=== PATIENT | male | born 1950 | race Caucasian/White ===

== ENCOUNTER 2017-03-11 16:48 | Observation (INO) ==
[2017-03-11 17:19] LABS: Bilirubin,Urine Negative (Negative); Blood,Urine Large (Negative); Clarity,Urine Clear (Clear); Color,Urine Yellow (Yellow); Glucose,Urine (UA) Normal (Normal); Ketones,Urine Negative (Negative); Leukocyte Esterase,Urine Small (Negative); Nitrite,Urine Negative (Negative); Protein,Urine Negative (Neg-Trace); Specific Gravity,Urine 1.006 (1.010-1.025); Urobilinogen,Urine Normal (Normal)
[2017-03-11 17:21] LABS: Bacteria,Urine None Seen per hpf (None-Few); Hyaline Casts,Urine None Seen per lpf (None-Few); RBC,Urine 50-100 per hpf (0-3); Squamous Epithelial Cell,Urine Many per lpf (None-Few)
[2017-03-11] MEDS: 0.9 % Sodium Chloride 1,000 ML IVC SCH ×2 (17:38→18:28)
[2017-03-11] MEDS ORDERED: cefTRIAXone 1,000 MG in Water for inj. (sterile) 10 ML IVP ONE (18:15)
[2017-03-11 18:19] LABS: Basophils # 0.1 K/mcL (0.0-0.2); Basophils % 0.6 %; Eosinophils # 0.1 K/mcL (0.0-0.6); Eosinophils % 0.8 %; Hematocrit 45.3 % (37.5-50.1); Hemoglobin 15.1 g/dL (12.9-16.9); Immature Granulocytes % 0.8 % (0-4); Lymphocytes % 69.1 %; Mean Corpuscular HGB Conc 33.3 g/dL (31.6-35.5); Mean Corpuscular Hemoglobin 30.3 pg (28.0-33.3); Mean Corpuscular Volume 90.8 fL (83.0-100.0); Mean Platelet Volume 10.9 fL (9.4-12.4); Monocytes # 0.6 K/mcL (0.0-1.3); Neutrophils # 3.9 K/mcL (1.6-8.9); Platelet Count 144 K/mcL (140-400); Red Blood Count 4.99 M/mcL (4.19-5.50); Segmented Neutrophils % 24.7 %
[2017-03-11 18:23] LABS: INR 1.1; Prothrombin Time 11.5 Seconds (9.4-12.1)
[2017-03-11 18:39] LABS: Alanine Aminotransferase 75 Units/L (7-52); Albumin 3.6 g/dL (3.5-5.7); Albumin/Globulin Ratio 1.6 (1.1-2.2); Alkaline Phosphatase 87 Units/L (34-104); Aspartate Amino Transferase 52 Units/L (13-39); BUN/Creatinine Ratio 19 (6-26); Bilirubin,Direct 0.1 mg/dL (0.0-0.2); Bilirubin,Indirect 0.8 mg/dL (0.0-1.2); Bilirubin,Total 0.9 mg/dL (0.3-1.0); Blood Urea Nitrogen 19 mg/dL (8-23); Calcium 8.8 mg/dL (8.6-10.3); Carbon Dioxide 24 mEq/L (23-29); Chloride 106 mEq/L (98-107); Globulin 2.3 g/dL (2.4-3.5); Glucose 90 mg/dL (70-105); Lipase 20 Units/L (11-82); Osmolality,Calculated 284 (280-300); Potassium 4.8 mEq/L (3.5-5.1); Sodium 136 mEq/L (136-145); Total Protein 5.9 g/dL (6.4-8.9); eGFR For African Americans > 60 (> 60); eGFR For Non-African Americans > 60 (> 60)
--- NOTE | 2017-03-11 18:42 | Emergency Department Note ---
Disposition Clinical Impression: UTI (urinary tract infection) Qualifiers: Urinary tract infection type: site unspecified Hematuria presence: with hematuria Qualified Code(s): N39.0 - Urinary tract infection, site not specified ; R31.9 - Hematuria, unspecified; R31.9 - Hematuria, unspecified Sepsis Qualifiers: Sepsis type: sepsis due to unspecified organism Qualified Code(s): A41.9 - Sepsis, unspecified organism Disposition: Admitted As Inpatient Condition: Good [facility]: [facility]Primary Care Provider[facility] - Evgeny Wolff [Family Provider] - Forms: ED Satisfaction Letter General Adult HPI - General Chief complaint: ED Urogenital-Male Stated complaint: poss UTI Time Seen by Provider: 03/11/17 16:50 Source: EMS Limitations: no limitations Nursing Notes Reviewed: Yes Vital Signs Reviewed: Yes - History of Present Illness HPI Narrative: Patient transferred from the [place] for concern for cystitis versus pallor nephritis. Patient had a cystoscopy and urethral dilation approximately 1 week ago by urology at [place]. Patient had a Brandt placed and was to follow-up on Tuesday for a voiding trial. Patient noticed today that he had a change in the color of his urine as well as suprapubic abdominal pain with radiation to the left flank. Went to the urgent care where they did some initial blood work and evaluation showing a elevated WBC at 17. Patient has concern for urinary tract infection. Mild increase in creatinine. Patient arrives with initial blood pressure less than 100. Concern for overall sepsis. Sepsis that ordered. Patient does not appear to be in any distress. Patient is very pleasant and overly conversational. Pain Scale: 2 - Related Data Home Medications Medication Instructions Recorded Confirmed Gabapentin [Neurontin] 300 mg PO TID 02/09/17 03/11/17 Levothyroxine [Synthroid] 50 mcg PO 0630 02/09/17 03/11/17 Multivit-Min/FA/Vit K/Lycopene [Hm 1 tab PO DAILY 02/09/17 03/11/17 Mens 50+ Advanced One Daily] Cetirizine HCl [All Day Allergy] 10 mg PO DAILY 03/04/17 03/11/17 Cholecalciferol (D-3) [Vitamin D] 3,000 unit PO DAILY 03/04/17 03/11/17 Cyclobenzaprine [Flexeril] 10 mg PO TID PRN 03/04/17 03/11/17 Lisinopril [Zestril] 5 mg PO DAILY 03/04/17 03/11/17 Meloxicam 15 mg PO DAILY 03/04/17 03/11/17 Atorvastatin [Lipitor] 40 mg PO HS 03/11/17 03/11/17 Calcium Carbonate/Vitamin D3 1 each PO DAILY 03/11/17 03/11/17 [Calcium 600-Vit D3 200 Tablet] Carboxymethylcellulose Sodium 1 drop BOTH EYES QID 03/11/17 03/11/17 [Refresh Liquigel] Doxycycline Monohydrate [Avidoxy] 100 mg PO BID 03/11/17 FLUoxetine HCl [PROzac] 20 mg PO DAILY 03/11/17 03/11/17 Glucosamine Sulfate Dipot Chlr 1,000 mg PO DAILY 03/11/17 03/11/17 [Glucosamine] GuaiFENesin/Dextromethorphan 10 ml PO Q4H PRN 03/11/17 03/11/17 [Tussin Dm Syrup] Metformin HCl [Glucophage] 1,000 mg PO BID 03/11/17 03/11/17 MetroNIDAZOLE [[place]] 1 appl TP BID 03/11/17 03/11/17 glipiZIDE [Glucotrol] 2.5 mg PO BIDWM 03/11/17 03/11/17 risperiDONE [Risperdal] 2 mg PO HS 03/11/17 03/11/17 Previous Rx's Medication Instructions Recorded HYDROcodone/Acet 5/325 mg [[place] 1 tab PO Q4H PRN #15 tab 03/04/17 5-325 mg] Allergies Allergy/AdvReac Type Severity Reaction Status Date / Time levofloxacin [From Levaquin] Allergy Rash Verified 03/11/17 16:49 Sulfa (Sulfonamide Allergy See Verified 03/11/17 16:49 Antibiotics) Comments sulfamethoxazole Allergy See Verified 03/11/17 16:49 [From Bactrim] Comments trimethoprim [From Bactrim] Allergy See Verified 03/11/17 16:49 Comments Review of Systems: CONSTITUTIONAL: No weight loss, fever, chills, weakness or fatigue. HEENT: Eyes: No visual changes. Ears, Nose, Throat: No hearing loss, difficulty talking or unable to swallow. SKIN: No rash or itching. CARDIOVASCULAR: No chest pain, chest pressure or chest discomfort. No palpitations or edema. RESPIRATORY: No shortness of breath, cough or sputum. GASTROINTESTINAL: abdominal pain. urine changes. GENITOURINARY: No burning on urination or hematuria. NEUROLOGICAL: No headache, dizziness, syncope, paralysis, ataxia, numbness or tingling in the extremities. No change in bowel or bladder control. MUSCULOSKELETAL: No muscle pain, back pain, joint pain or stiffness. Past Medical History - Past Medical History Medical history: Reports: diabetes, thyroid disease Psychiatric history: Reports: anxiety, depression, schizophrenia - Social History Smoking Status: Never smoker Smokeless Tobacco Status: No Alcohol use: Reports: none Drug use: Reports: none Physical Exam General: Well appearing, nontoxic, no acute distress Head: Normocephalic Atraumatic Eyes: PERRL, EOMI ENT: Airway patent, no stridor Neck: supple, no meningismus Chest: Lungs clear to auscultation bilateral Cardiac: Regular rhythm, no murmurs, rubs or gallops Abdomen: soft, nontender, nondistended; no guarding, rebound, or tenderness to percussion; mild left sided CVA tenderness. Brandt catheter inplace. Musculoskeletal: Calves symmetric, nontender, no palpable cord Skin: No rash, normal skin tone Neuro: Alert and Oriented to person, place, and time; No focal deficit, CN 2-12 symmetric and intact - General Limitations: no limitations General appearance: alert, in no apparent distress Course Course Narrative: The patient initially presented with no tachycardia but did have a systolic blood pressure that was 88. Initial sepsis order set ordered. Fluids been given. After reevaluation after fluids the patient has not had any other episodes of hypotension. Patient is stable at this time. - Consultations Consultation #1: Discussed with hospitalist, Dr. Cain. Patient accepted for admission. Request consult to urology and 100 mL's per hour of maintenance fluids. Consultation #2: Discussed with Dr. Gaxiola. No other recommendations at this time. Will consult while inpatient. Vital Signs Temperature 97.1 F L 03/11/17 16:50 Pulse Rate 84 03/11/17 16:50 Respiratory Rate 15 03/11/17 16:50 Blood Pressure 126/71 03/11/17 16:50 O2 Sat by Pulse Oximetry 97 01/19/18 16:50 Temperature 97.1 F L 03/11/17 16:50 Pulse Rate 84 03/11/17 20:25 Respiratory Rate 18 03/11/17 20:25 Blood Pressure 140/78 03/11/17 20:25 O2 Sat by Pulse Oximetry 97 03/11/17 20:25 Oxygen Delivery Oxygen Delivery Room Air Medical Decision Making - Lab Data Result diagrams: 03/11/17 18:04 03/11/17 18:04 Lab Results 03/11/17 03/11/17 03/11/17 Range/Units 17:12 18:04 18:04 WBC 15.7 H (4.3-11.1) K/mcL RBC 4.99 (4.19-5.50) M/mcL Hgb 15.1 (12.9-16.9) g/dL Hct 45.3 (37.5-50.1) % MCV 90.8 (83.0-100.0) fL MCH 30.3 (28.0-33.3) pg MCHC 33.3 (31.6-35.5) g/dL RDW 13.0 (11.5-14.5) % Plt Count 144 (140-400) K/mcL MPV 10.9 (9.4-12.4) fL Immature Gran % 0.8 (0-4) % Seg Neutrophils % 24.7 % Lymphocytes % 69.1 % Monocytes % 4.0 % Eosinophils % 0.8 % Basophils % 0.6 % Neutrophils # 3.9 (1.6-8.9) K/mcL Lymphocytes # 10.9 H (0.6-4.6) K/mcL Monocytes # 0.6 (0.0-1.3) K/mcL Eosinophils # 0.1 (0.0-0.6) K/mcL Basophils # 0.1 (0.0-0.2) K/mcL Reactive Lymphocytes Present A (Not Present) Smudge Cells Present A (Not Present) PT 11.5 (9.4-12.1) Seconds INR 1.1 Sodium (136-145) mEq/L Potassium (3.5-5.1) mEq/L Chloride (98-107) mEq/L Carbon Dioxide (23-29) mEq/L BUN (8-23) mg/dL Creatinine (0.70-1.30) mg/dL Est GFR ( Amer) (> 60) Est GFR (Non-Af Amer) (> 60) BUN/Creatinine Ratio (6-26) Glucose (70-105) mg/dL Calculated Osmolality (280-300) Lactic Acid (0.5-2.2) mmol/L Calcium (8.6-10.3) mg/dL Total Bilirubin (0.3-1.0) mg/dL Direct Bilirubin (0.0-0.2) mg/dL Indirect Bilirubin (0.0-1.2) mg/dL AST (13-39) Units/L ALT (7-52) Units/L Alkaline Phosphatase (34-104) Units/L Troponin I (< 0.04) ng/mL Serum Total Protein (6.4-8.9) g/dL Albumin (3.5-5.7) g/dL Globulin (2.4-3.5) g/dL Albumin/Globulin Ratio (1.1-2.2) Lipase (11-82) Units/L Urine Color Yellow (Yellow) Urine Clarity Clear (Clear) Urine pH 7.0 (5.0-8.0) pH Units Ur Specific [place] 1.006 L (1.010-1.025) Urine Protein Negative (Neg-Trace) mg/dL Urine Glucose (UA) Normal (Normal) mg/dL Urine Ketones Negative (Negative) mg/dL Urine Blood Large H (Negative) Urine Nitrite Negative (Negative) Urine Bilirubin Negative (Negative) Urine Urobilinogen Normal (Normal) mg/dL Ur Leukocyte Esterase Small H (Negative) Urine Microscopic RBC 50-100 H (0-3) per hpf Urine Microscopic WBC 5-15 H (0-3) per hpf Ur Squamous Epith Cells Many H (None-Few) per lpf Urine Bacteria None Seen (None-Few) per hpf Hyaline Casts None Seen (None-Few) per lpf Ur Culture Indicated? NO. (NO) 03/11/17 03/11/17 03/11/17 Range/Units 18:04 18:04 18:04 WBC (4.3-11.1) K/mcL RBC (4.19-5.50) M/mcL Hgb (12.9-16.9) g/dL Hct (37.5-50.1) % MCV (83.0-100.0) fL MCH (28.0-33.3) pg MCHC (31.6-35.5) g/dL RDW (11.5-14.5) % Plt Count (140-400) K/mcL MPV (9.4-12.4) fL Immature Gran % (0-4) % Seg Neutrophils % % Lymphocytes % % Monocytes % % Eosinophils % % Basophils % % Neutrophils # (1.6-8.9) K/mcL Lymphocytes # (0.6-4.6) K/mcL Monocytes # (0.0-1.3) K/mcL Eosinophils # (0.0-0.6) K/mcL Basophils # (0.0-0.2) K/mcL Reactive Lymphocytes (Not Present) Smudge Cells (Not Present) PT (9.4-12.1) Seconds INR Sodium 136 (136-145) mEq/L Potassium 4.8 (3.5-5.1) mEq/L Chloride 106 (98-107) mEq/L Carbon Dioxide 24 (23-29) mEq/L BUN 19 (8-23) mg/dL Creatinine 1.01 (0.70-1.30) mg/dL Est GFR ( Amer) > 60 (> 60) Est GFR (Non-Af Amer) > 60 (> 60) BUN/Creatinine Ratio 19 (6-26) Glucose 90 (70-105) mg/dL Calculated Osmolality 284 (280-300) Lactic Acid 1.9 (0.5-2.2) mmol/L Calcium 8.8 (8.6-10.3) mg/dL Total Bilirubin 0.9 (0.3-1.0) mg/dL Direct Bilirubin 0.1 (0.0-0.2) mg/dL Indirect Bilirubin 0.8 (0.0-1.2) mg/dL AST 52 H (13-39) Units/L ALT 75 H (7-52) Units/L Alkaline Phosphatase 87 (34-104) Units/L Troponin I < 0.03 (< 0.04) ng/mL Serum Total Protein 5.9 L (6.4-8.9) g/dL Albumin 3.6 (3.5-5.7) g/dL Globulin 2.3 L (2.4-3.5) g/dL Albumin/Globulin Ratio 1.6 (1.1-2.2) Lipase 20 (11-82) Units/L Urine Color (Yellow) Urine Clarity (Clear) Urine pH (5.0-8.0) pH Units Ur Specific [place] (1.010-1.025) Urine Protein (Neg-Trace) mg/dL Urine Glucose (UA) (Normal) mg/dL Urine Ketones (Negative) mg/dL Urine Blood (Negative) Urine Nitrite (Negative) Urine Bilirubin (Negative) Urine Urobilinogen (Normal) mg/dL Ur Leukocyte Esterase (Negative) Urine Microscopic RBC (0-3) per hpf Urine Microscopic WBC (0-3) per hpf Ur Squamous Epith Cells (None-Few) per lpf Urine Bacteria (None-Few) per hpf Hyaline Casts (None-Few) per lpf Ur Culture Indicated? (NO) Attestation Statement - Attestation Attestation: I examined this patient and my medical decision-making was reviewed with the Resident Physician. I agree with the documented findings, disposition and treatment plan as described except to the extent set forth below. Patient presents to the ED with a chief complaint of blood in his urine. He noticed it last night. Patient recently had a urologic procedure and a Brandt catheter placed. Transfer[place]. On examination he is awake and alert. Some mild suprapubic tenderness. He is not guarding. Plan. Septic workup. Elevated white blood cell count. He has some blood and white blood cells in his urine. We will start him on IV antibiotic and admitted to the hospitalist.
[2017-03-11 18:53] LABS: Lymphocytes # 10.9 K/mcL (0.6-4.6)
[2017-03-11 18:55] LABS: Reactive Lymphocytes Present (Not Present); Smudge Cells Present (Not Present)
[2017-03-11] MEDS ORDERED: 0.9 % Sodium Chloride 1,000 ML IVC SCH (20:30)
[2017-03-12] MEDS ORDERED: *HR* Dextrose 50 % in Water (Syg) 50 ML SYRINGE IVP PRN (00:45)
[2017-03-12] MEDS ORDERED: Dextrose Gel 15 GM/37.5 ML TUBE PO PRN ×2 (00:45)
[2017-03-12] MEDS ORDERED: D5% in Water 1,000 ML IVC PRN (00:45)
[2017-03-12] MEDS: 0.9 % Sodium Chloride 1,000 ML IVC SCH ×2 (03:27→14:35)
[2017-03-12] MEDS ORDERED: Acetaminophen 325 MG TABLET PO PRN (03:50)
[2017-03-12] MEDS ORDERED: Ondansetron 4 MG/2 ML VIAL IVP PRN (03:50)
[2017-03-12] MEDS ORDERED: Naloxone 0.4 MG/ML INJ IVP PRN (03:50)
[2017-03-12] MEDS ORDERED: *HR* HYDROcodone/Acet 5/325 mg TABLET PO PRN (03:53)
--- NOTE | 2017-03-12 04:11 | Internal Med History&Physical ---
Date of Encounter: 03/12/17 Time of Encounter: 00:20 Assessment and Plan (1) UTI (urinary tract infection) Current visit: Yes Status: Acute 1. Blood and urine cultures obtained in ER. 2. Continue IVF and IV antibiotics. 3. Consult urology given recent procedure and indwelling Brandt catheter. Qualifiers: Urinary tract infection type: site unspecified Hematuria presence: with hematuria Qualified Code(s): N39.0 - Urinary tract infection, site not specified; R31.9 - Hematuria, unspecified; R31.9 - Hematuria, unspecified (2) Type 2 diabetes mellitus Current visit: Yes Status: Chronic 1. Hold oral home meds. 2. Will monitor glucose and provide sliding scale insulin. Qualifiers: Diabetes mellitus complication status: without complication Diabetes mellitus penitentiary insulin use: without supervisor long goods use Qualified Code(s): E11.9 - Type 2 diabetes mellitus without complications (3) CLL (chronic lymphocytic leukemia) Current visit: No Status: Chronic 1. Follow CBC. 2. Patient follows with Oncology as outpatient. (4) DVT prophylaxis Current visit: Yes Status: Acute 1. Heparin SQ. Internal Medicine - H&P: HPI Chief complaint: dysuria; hematuria Admitted From: Emergency Dept Plans for Post Hospital Care: Home History of present illness: Mr. Baum is a 67 year old male who presents here today in transfer [place] the [place] for concerns of UTI and hematuria. Patient had a urethral dilatation roughly 1 week ago by urology for urethral stenosis. He has a Brandt catheter in place and is due to have that removed early next week with a voiding trial. However, since his procedure, he's developed some dysuria, frequency, and some slight hematuria. He's had some low-grade fevers. He denies any vomiting at present, but he's had some nausea. Work-up completed in the ER revealed findings concerning for UTI and he was admitted to hospitalist service with urology consultation. Upon my assessment of the patient, patient feels well, but he looks low dehydrated and has had some mild nausea. He denies any cough, congestion, shortness of breath, chest pain, or diarrhea. His appetite has been down, as has been his fluid intake as well. He has had some suprapubic pain, but he denies any upper abdominal pain or flank pain. Past Med Surg Social Fam HX - Past Medical History Attestation: Yes The following information was validated with the patient. Source: patient, old records reviewed Medical history: diabetes, malignancy (CLL), thyroid disease Psychiatric history: anxiety, depression, schizophrenia - Past Surgical History Surgical History: other (urologic surgery) - Social History Smoking Status: Never smoker Smokeless Tobacco Status: No Alcohol use: none Drug use: none Activity Level: Independent ambulation Recent Out of Country Travel Within the Last 8 Weeks: No - Family History Daughter History Unknown: Yes Adopted: No Father History Unknown: Yes Adopted: [place]: Joe Baum Family Member Ethnicity: Non- Living Status: Age at : 85 Hx Family Genitourinary Disorders: Yes (enlarged prostate) Internal Medicine - H&P: Meds Gabapentin [Neurontin] 300 mg PO TID 02/09/17 [History] Levothyroxine [Synthroid] 50 mcg PO 0630 02/09/17 [History] Multivit-Min/FA/Vit K/Lycopene [Hm Mens 50+ Advanced One Daily] 1 tab PO DAILY 02/09/17 [History] Cetirizine HCl [All Day Allergy] 10 mg PO DAILY 03/04/17 [History] Cholecalciferol (D-3) [Vitamin D] 3,000 unit PO DAILY 03/04/17 [History] Cyclobenzaprine [Flexeril] 10 mg PO TID PRN 03/04/17 [History] HYDROcodone/Acet 5/325 mg [[place] 5-325 mg] 1 tab PO Q4H PRN #15 tab 03/04/17 [Rx ] Lisinopril [Zestril] 5 mg PO DAILY 03/04/17 [History] Meloxicam 15 mg PO DAILY 03/04/17 [History] Atorvastatin [Lipitor] 40 mg PO HS 03/11/17 [History] Calcium Carbonate/Vitamin D3 [Calcium 600-Vit D3 200 Tablet] 1 each PO DAILY [History] Carboxymethylcellulose Sodium [Refresh Liquigel] 1 drop BOTH EYES QID 03/11/17 [ History] Doxycycline Monohydrate [Avidoxy] 100 mg PO BID 03/11/17 [History] FLUoxetine HCl [PROzac] 20 mg PO DAILY 03/11/17 [History] Glucosamine Sulfate Dipot Chlr [Glucosamine] 1,000 mg PO DAILY 03/11/17 [History ] GuaiFENesin/Dextromethorphan [Tussin Dm Syrup] 10 ml PO Q4H PRN 03/11/17 [ History] Metformin HCl [Glucophage] 1,000 mg PO BID 03/11/17 [History] MetroNIDAZOLE [Rosadan] 1 appl TP BID 03/11/17 [History] glipiZIDE [Glucotrol] 2.5 mg PO BIDWM 03/11/17 [History] risperiDONE [Risperdal] 2 mg PO HS 03/11/17 [History] 3 Allergy/AdvReac Type Severity Reaction Status Date / Time levofloxacin [From Levaquin] Allergy Rash Verified 03/11/17 16:49 Sulfa (Sulfonamide Allergy See Verified 03/11/17 16:49 Antibiotics) Comments sulfamethoxazole Allergy See Verified 03/11/17 16:49 [From Bactrim] Comments trimethoprim [From Bactrim] Allergy See Verified 03/11/17 16:49 Comments - Constitutional Constitutional: fever(s) (subjective), no chills, no night sweats - EENT Eyes: no blurry vision, no change in vision Ears: no ear pain, no tinnitus Nose, mouth and throat: no nasal congestion, no nasal discharge, no sore throat - Cardiovascular Cardiovascular ROS IM: no chest pain, no dyspnea, no dyspnea on exertion - Respiratory Respiratory: no cough, no wheezing, no chest congestion, no excessive phlegm production, no change in phlegm color - Gastrointestinal Gastrointestinal: abdominal pain (suprapubic), nausea, no diarrhea, no vomiting - Genitourinary Genitourinary ROS male: dysuria, hematuria, no flank pain - Musculoskeletal Musculoskeletal ROS IM: no muscle cramps, no muscle weakness - Integumentary Integumentary IM: no rash, no jaundice - Neurological Neurological ROS: no dizziness, no focal weakness, no frequent falls, no headache(s), no weakness - Psychiatric Psychiatric: no anxiety, no depression - Endocrine Endocrine IM: no polydipsia, no polyuria - Hematologic/Lymphatic Hematologic/Lymphatic: no easy bruising, no lymphadenopathy - Allergic/Immunologic Allergic/Immunologic: no wheezing, no GI upset with certain foods - Constitutional Vitals: Temp Pulse Resp BP Pulse Ox 98.3 F 81 17 116/71 93 03/12/17 02:50 03/12/17 02:50 03/12/17 02:50 03/12/17 02:50 03/12/17 02:50 General appearance: Present: cooperative, A&O X 3, pleasant, no acute distress - Head Head exam: Present: atraumatic, normal inspection - Eye Eye exam: Present: EOMI, PERRL. Absent: scleral icterus Pupils: Present: normal accommodation - ENT ENT exam: Present: mucous membranes dry, normal exam - Neck Neck exam general surgery: Present: full ROM, supple. Absent: tenderness - Respiratory Respiratory exam: Present: CTAB. Absent: chest wall tenderness, rales, rhonchi , wheezes - Cardiovascular Cardiovascular exam: Present: RRR, +S1, +S2. Absent: diastolic murmur, systolic murmur - GI/Abdominal GI/Abdominal exam: Present: normal bowel sounds, soft, tenderness (mild tenderness suprapubically). Absent: guarding, hepatomegaly, mass, rebound, splenomegaly - Extremities Exam Extremities exam: Present: warm, radial pulses palpable and symmetrical. Absent : calf tenderness, joint swelling - Back Exam Back exam: Absent: CVA tenderness (L), CVA tenderness (R) - Neurological Exam Neurological exam: Present: alert, CN II-XII intact, oriented X3, no focal deficits - Psychiatric Psychiatric exam: Present: normal affect, normal mood - Skin Skin exam: Present: dry, warm. Absent: rash Internal Med - H&P Results - Labs CBC & Chem 7: 03/11/17 18:04 03/11/17 18:04 - Diagnostic Studies CT scan - abdomen Status: image reviewed by me (Report reviewed as well -- negative except for some bladder wall thickening)
[2017-03-12] MEDS: *HR* Heparin 5,000 UNIT/ML VIAL SQ SCH ×2 (05:50→17:59)
[2017-03-12 06:04] LABS: Hematocrit 39.2 % (37.5-50.1); INR 1.1; Mean Corpuscular HGB Conc 33.2 g/dL (31.6-35.5); Mean Corpuscular Hemoglobin 30.3 pg (28.0-33.3); Mean Corpuscular Volume 91.4 fL (83.0-100.0); Mean Platelet Volume 11.1 fL (9.4-12.4); Nucleated Red Blood Cells 0.4 /100 WBC (0); Platelet Count 124 K/mcL (140-400); Prothrombin Time 11.9 Seconds (9.4-12.1); Red Blood Count 4.29 M/mcL (4.19-5.50); Red Cell Distribution Width 12.9 % (11.5-14.5)
[2017-03-12 06:07] LABS: Activated Partial Thrombo Time 36.5 Seconds (26.0-36.0)
[2017-03-12 06:17] LABS: Alanine Aminotransferase 65 Units/L (7-52); Albumin 3.2 g/dL (3.5-5.7); Albumin/Globulin Ratio 1.5 (1.1-2.2); Alkaline Phosphatase 80 Units/L (34-104); Aspartate Amino Transferase 39 Units/L (13-39); BUN/Creatinine Ratio 20 (6-26); Bilirubin,Total 0.6 mg/dL (0.3-1.0); Blood Urea Nitrogen 20 mg/dL (8-23); Calcium 8.8 mg/dL (8.6-10.3); Carbon Dioxide 28 mEq/L (23-29); Chloride 108 mEq/L (98-107); Globulin 2.1 g/dL (2.4-3.5); Glucose 120 mg/dL (70-105); Magnesium 1.9 mg/dL (1.6-2.6); Osmolality,Calculated 292 (280-300); Potassium 4.6 mEq/L (3.5-5.1); Sodium 139 mEq/L (136-145); Total Protein 5.3 g/dL (6.4-8.9); eGFR For African Americans > 60 (> 60); eGFR For Non-African Americans > 60 (> 60)
[2017-03-12 06:35] LABS: Eosinophils # 0.3 K/mcL (0.0-0.6); Lymphocytes # 5.3 K/mcL (0.6-4.6); Monocytes # 0.5 K/mcL (0.0-1.3); Neutrophils # 6.6 K/mcL (1.6-8.9)
[2017-03-12 06:36] LABS: Large Platelets Present (Not Present); Macrocytosis Present (Not Present); Platelet Estimate Slight Decrease (Normal); Reactive Lymphocytes Present (Not Present); Smudge Cells Present (Not Present)
--- NOTE | 2017-03-12 08:48 | Urology - Consult Note ---
Date of Encounter: 03/12/17 Time of Encounter: 08:46 - Assessment and Plan (1) Urethral stricture Current Visit: Yes Status: Acute Assessment and plan: Patient will keep his urinary catheter in place. He is scheduled to follow-up with Dr. Hall on Tuesday for possible voiding trial. Qualifiers: Urethral stricture type: other stricture Qualified Code(s): N35.8 - Other urethral stricture (2) UTI (urinary tract infection) Current Visit: Yes Status: Acute Assessment and plan: I question whether the patient truly has a urinary tract infection. He is without fevers and without nitrites on his UA. Please call with any further questions. Qualifiers: Urinary tract infection type: site unspecified Hematuria presence: with hematuria Qualified Code(s): N39.0 - Urinary tract infection, site not specified; R31.9 - Hematuria, unspecified; R31.9 - Hematuria, unspecified Urology CN:HPI Consult date: 03/12/17 Reason for consult Urology: Other (possible uti) Requesting physician: Cesar Munson History of present illness: Seven is a 67-year-old male with a history of recent urethral dilation and catheter placement secondary to pinpoint urethral stricture. She states that he was having problems with a cough as well as a cold was unable to go undergo the planned procedure of a DVIU. Patient states that he started to have some blood in his catheter as well as some vague abdominal discomfort and came to the emergency department. He was found to have blood and leukocytes in his urine which is normal after the above procedure. No bacteria were seen. Patient did have a slightly elevated WBC count but does have a history of CLL. No fevers since arrival to the hospital. Past Med Surg Social Fam HX - Past Medical History Medical history: diabetes, malignancy (CLL), thyroid disease Psychiatric history: anxiety, depression, schizophrenia - Past Surgical History Surgical History: other (urologic surgery) - Social History Smoking Status: Never smoker Smokeless Tobacco Status: No Alcohol use: none Drug use: none - Family History Daughter History Unknown: Yes Adopted: No Father History Unknown: Yes Adopted: [place]: Joe Baum Family Member Ethnicity: Non- Living Status: Age at : 85 Hx Family Genitourinary Disorders: Yes (enlarged prostate) Medications and Allergies Gabapentin [Neurontin] 300 mg PO TID 02/09/17 [History] Levothyroxine [Synthroid] 50 mcg PO 0630 02/09/17 [History] Multivit-Min/FA/Vit K/Lycopene [Hm Mens 50+ Advanced One Daily] 1 tab PO DAILY 02/09/17 [History] Cetirizine HCl [All Day Allergy] 10 mg PO DAILY 03/04/17 [History] Cholecalciferol (D-3) [Vitamin D] 3,000 unit PO DAILY 03/04/17 [History] Cyclobenzaprine [Flexeril] 10 mg PO TID PRN 03/04/17 [History] HYDROcodone/Acet 5/325 mg [[place] 5-325 mg] 1 tab PO Q4H PRN #15 tab 03/04/17 [Rx ] Lisinopril [Zestril] 5 mg PO DAILY 03/04/17 [History] Meloxicam 15 mg PO DAILY 03/04/17 [History] Atorvastatin [Lipitor] 40 mg PO HS 03/11/17 [History] Calcium Carbonate/Vitamin D3 [Calcium 600-Vit D3 200 Tablet] 1 each PO DAILY [History] Carboxymethylcellulose Sodium [Refresh Liquigel] 1 drop BOTH EYES QID 03/11/17 [ History] Doxycycline Monohydrate [Avidoxy] 100 mg PO BID 03/11/17 [History] FLUoxetine HCl [PROzac] 20 mg PO DAILY 03/11/17 [History] Glucosamine Sulfate Dipot Chlr [Glucosamine] 1,000 mg PO DAILY 03/11/17 [History ] GuaiFENesin/Dextromethorphan [Tussin Dm Syrup] 10 ml PO Q4H PRN 03/11/17 [ History] Metformin HCl [Glucophage] 1,000 mg PO BID 03/11/17 [History] MetroNIDAZOLE [Rosadan] 1 appl TP BID 03/11/17 [History] glipiZIDE [Glucotrol] 2.5 mg PO BIDWM 03/11/17 [History] risperiDONE [Risperdal] 2 mg PO HS 03/11/17 [History] 3 Allergy/AdvReac Type Severity Reaction Status Date / Time levofloxacin [From Levaquin] Allergy Rash Verified 03/11/17 16:49 Sulfa (Sulfonamide Allergy See Verified 03/11/17 16:49 Antibiotics) Comments sulfamethoxazole Allergy See Verified 03/11/17 16:49 [From Bactrim] Comments trimethoprim [From Bactrim] Allergy See Verified 03/11/17 16:49 Comments Review of Systems - Constitutional no chills, no fever(s) - EENT Nose, mouth and throat: no dizziness - Cardiovascular no chest pain - Respiratory cough - Gastrointestinal abdominal pain (Patient states has vague abdominal discomfort) - Genitourinary hematuria, no nocturia - Musculoskeletal no back pain - Integumentary no erythema, no lesions - Neurological no confusion, no weakness - Psychiatric no confusion - Hematologic/Lymphatic no easy bleeding, no lymphadenopathy - Allergic/Immunologic no throat swelling, no wheezing Exam Initial Vital Signs Temp Pulse Resp BP Pulse Ox 97.1 F L 84 15 126/71 97 03/11/17 16:50 03/11/17 16:50 03/11/17 16:50 03/11/17 16:50 03/11/17 16:50 - General physical appearance Present: well developed - Eyes Present: PERRL. Absent: icteric - ENT Present: normal nares, no hearing loss - Neck Present: no masses, no lymphadenopathy - Respiratory Present: normal respiratory effort - Cardiovascular Cardiovascular exam IM: RRR - Abdomen Abdomen: Present: soft. Absent: tender - Genitourinary other (Urinary catheter in place in the penis with no blood seen in tubing.) - Integumentary Present: no rash, no growths - Neurologic Present: normal coordination - Musculoskeletal Present: normal gait Urology Results - Labs 03/12/17 05:18 03/12/17 05:18 Abnormal lab results WBC 12.6 K/mcL (4.3-11.1) H 03/12/17 05:18 Plt Count 124 K/mcL (140-400) L 03/12/17 05:18 Lymphocytes # 5.3 K/mcL (0.6-4.6) H 03/12/17 05:18 Nucleated RBCs/100 WBC 0.4 /100 WBC (0) H 03/12/17 05:18 Reactive Lymphocytes Present (Not Present) A 03/12/17 05:18 Smudge Cells Present (Not Present) A 03/12/17 05:18 Platelet Estimate Slight Decrease (Normal) L 03/12/17 05:18 Large Platelets Present (Not Present) A 03/12/17 05:18 Macrocytosis Present (Not Present) A 03/12/17 05:18 APTT 36.5 Seconds (26.0-36.0) H 03/12/17 05:18 Chloride 108 mEq/L (98-107) H 03/12/17 05:18 Glucose 120 mg/dL (70-105) H 03/12/17 05:18 POC Glucose 126 (58-89) H 03/11/17 22:30 ALT 65 Units/L (7-52) H 03/12/17 05:18 Serum Total Protein 5.3 g/dL (6.4-8.9) L 03/12/17 05:18 Albumin 3.2 g/dL (3.5-5.7) L 03/12/17 05:18 Globulin 2.1 g/dL (2.4-3.5) L 03/12/17 05:18 Ur Specific [place] 1.006 (1.010-1.025) L 03/11/17 17:12 Urine Blood Large (Negative) H 03/11/17 17:12 Ur Leukocyte Esterase Small (Negative) H 03/11/17 17:12 Urine Microscopic RBC 50-100 per hpf (0-3) H 03/11/17 17:12 Urine Microscopic WBC 5-15 per hpf (0-3) H 03/11/17 17:12 Ur Squamous Epith Cells Many per lpf (None-Few) H 03/11/17 17:12 Diabetes panel 03/12/17 Range/Units 05:18 Sodium 139 (136-145) mEq/L Potassium 4.6 (3.5-5.1) mEq/L Chloride 108 H (98-107) mEq/L Carbon Dioxide 28 (23-29) mEq/L BUN 20 (8-23) mg/dL Creatinine 1.00 (0.70-1.30) mg/dL Glucose 120 H (70-105) mg/dL Calcium 8.8 (8.6-10.3) mg/dL AST 39 (13-39) Units/L ALT 65 H (7-52) Units/L Alkaline Phosphatase 80 (34-104) Units/L Albumin 3.2 L (3.5-5.7) g/dL Calcium panel 03/12/17 Range/Units 05:18 Calcium 8.8 (8.6-10.3) mg/dL Albumin 3.2 L (3.5-5.7) g/dL Pituitary panel 03/12/17 Range/Units 05:18 Sodium 139 (136-145) mEq/L Potassium 4.6 (3.5-5.1) mEq/L Chloride 108 H (98-107) mEq/L Carbon Dioxide 28 (23-29) mEq/L BUN 20 (8-23) mg/dL Creatinine 1.00 (0.70-1.30) mg/dL Glucose 120 H (70-105) mg/dL Calcium 8.8 (8.6-10.3) mg/dL Adrenal panel 03/12/17 Range/Units 05:18 Sodium 139 (136-145) mEq/L Potassium 4.6 (3.5-5.1) mEq/L Chloride 108 H (98-107) mEq/L Carbon Dioxide 28 (23-29) mEq/L BUN 20 (8-23) mg/dL Creatinine 1.00 (0.70-1.30) mg/dL Glucose 120 H (70-105) mg/dL Calcium 8.8 (8.6-10.3) mg/dL Total Bilirubin 0.6 (0.3-1.0) mg/dL AST 39 (13-39) Units/L ALT 65 H (7-52) Units/L Alkaline Phosphatase 80 (34-104) Units/L Albumin 3.2 L (3.5-5.7) g/dL All other labs normal. Consult Discharge Plan - Plan Referrals: [facility] [Primary Care Provider[facility] - Evgeny Wolff [Family Provider] -
[2017-03-12] MEDS: Insulin LISPRO 300 UNITS/3 ML VIAL SQ SCH ×4 (09:01→21:35)
[2017-03-12] MEDS: cefTRIAXone 1,000 MG in Water for inj. (sterile) 10 ML IVP SCH (10:05)
[2017-03-12] MEDS: Gabapentin 300 MG CAPSULE PO SCH ×3 (10:06→21:43)
[2017-03-12] MEDS: Loratadine 10 MG TABLET PO SCH (10:06)
[2017-03-12] MEDS: FLUoxetine 20 MG CAPSULE PO SCH (10:06)
[2017-03-12] MEDS: Cholecalciferol (D-3) 1,000 UNIT TABLET PO SCH (10:06)
[2017-03-12] MEDS: Artificial Tears SOLN 15 ML BOTTLE BOTH EYES SCH ×4 (10:07→21:42)
[2017-03-12] MEDS: METRONIDAZOLE APPL TP SCH ×2 (10:07→21:43)
--- NOTE | 2017-03-12 18:12 | Event Note ---
Date of Encounter: 03/12/17 Time of Encounter: 11:00 Patient was seen by nocturnalist earlier this morning and also by myself Neurology was consulted with recommendations for follow-up Will continue IV ceftriaxone
[2017-03-12] MEDS: risperiDONE 1 MG TABLET PO SCH (21:42)
[2017-03-13] MEDS: 0.9 % Sodium Chloride 1,000 ML IVC SCH ×2 (00:43→11:37)
[2017-03-13] MEDS: *HR* Heparin 5,000 UNIT/ML VIAL SQ SCH ×2 (05:27→17:52)
[2017-03-13] MEDS: Loratadine 10 MG TABLET PO SCH (08:10)
[2017-03-13] MEDS: Gabapentin 300 MG CAPSULE PO SCH ×3 (08:10→21:48)
[2017-03-13] MEDS: FLUoxetine 20 MG CAPSULE PO SCH (08:11)
[2017-03-13] MEDS: Cholecalciferol (D-3) 1,000 UNIT TABLET PO SCH (08:11)
[2017-03-13] MEDS: cefTRIAXone 1,000 MG in Water for inj. (sterile) 10 ML IVP SCH (08:11)
[2017-03-13] MEDS: Artificial Tears SOLN 15 ML BOTTLE BOTH EYES SCH ×4 (08:15→21:47)
[2017-03-13] MEDS: Insulin LISPRO 300 UNITS/3 ML VIAL SQ SCH ×4 (08:16→21:44)
[2017-03-13] MEDS: METRONIDAZOLE APPL TP SCH ×2 (08:16→21:48)
[2017-03-13 10:51] LABS: BUN/Creatinine Ratio 16 (6-26); Blood Urea Nitrogen 18 mg/dL (8-23); Calcium 8.2 mg/dL (8.6-10.3); Carbon Dioxide 24 mEq/L (23-29); Chloride 107 mEq/L (98-107); Glucose 259 mg/dL (70-105); Osmolality,Calculated 297 (280-300); Potassium 4.2 mEq/L (3.5-5.1); Sodium 138 mEq/L (136-145); eGFR For African Americans > 60 (> 60); eGFR For Non-African Americans > 60 (> 60)
[2017-03-13 10:55] LABS: Eosinophils % 1.1 %
[2017-03-13 10:57] LABS: Basophils # 0.1 K/mcL (0.0-0.2); Basophils % 0.7 %; Eosinophils # 0.1 K/mcL (0.0-0.6); Hematocrit 35.8 % (37.5-50.1); Hemoglobin 11.4 g/dL (12.9-16.9); Immature Granulocytes % 0.7 % (0-4); Immature Platelets 6.6 % (1.1-6.1); Lymphocytes # 4.7 K/mcL (0.6-4.6); Lymphocytes % 65.5 %; Mean Corpuscular HGB Conc 31.8 g/dL (31.6-35.5); Mean Corpuscular Hemoglobin 29.7 pg (28.0-33.3); Mean Corpuscular Volume 93.2 fL (83.0-100.0); Mean Platelet Volume 11.9 fL (9.4-12.4); Monocytes # 0.3 K/mcL (0.0-1.3); Monocytes % 4.1 %; Nucleated Red Blood Cells 0.7 /100 WBC (0); Red Blood Count 3.84 M/mcL (4.19-5.50); Red Cell Distribution Width 12.7 % (11.5-14.5); Segmented Neutrophils % 27.9 %
[2017-03-13 11:01] LABS: Platelet Count 87 K/mcL (140-400)
[2017-03-13 11:20] LABS: Platelet Estimate Slight Decrease (Normal)
--- NOTE | 2017-03-13 16:08 | Discharge Summary ---
Date of Encounter: 03/13/17 Time of Encounter: 11:00 - Discharge Diagnosis (1) Urethral stricture Priority: Primary Status: Acute Qualifiers: Urethral stricture type: other stricture Qualified Code(s): N35.8 - Other urethral stricture - Discharge Medications Home Medications: Gabapentin [Neurontin] 300 mg PO TID 02/09/17 [History] Levothyroxine [Synthroid] 50 mcg PO 0630 02/09/17 [History] Multivit-Min/FA/Vit K/Lycopene [Hm Mens 50+ Advanced One Daily] 1 tab PO DAILY 02/09/17 [History] Cetirizine HCl [All Day Allergy] 10 mg PO DAILY 03/04/17 [History] Cholecalciferol (D-3) [Vitamin D] 3,000 unit PO DAILY 03/04/17 [History] Cyclobenzaprine [Flexeril] 10 mg PO TID PRN 03/04/17 [History] HYDROcodone/Acet 5/325 mg [[place] 5-325 mg] 1 tab PO Q4H PRN #15 tab 03/04/17 [Rx ] Lisinopril [Zestril] 5 mg PO DAILY 03/04/17 [History] Meloxicam 15 mg PO DAILY 03/04/17 [History] Atorvastatin [Lipitor] 40 mg PO HS 03/11/17 [History] Calcium Carbonate/Vitamin D3 [Calcium 600-Vit D3 200 Tablet] 1 each PO DAILY [History] Carboxymethylcellulose Sodium [Refresh Liquigel] 1 drop BOTH EYES QID 03/11/17 [ History] Doxycycline Monohydrate [Avidoxy] 100 mg PO BID 03/11/17 [History] FLUoxetine HCl [Prozac] 20 mg PO DAILY 03/11/17 [History] Glucosamine Sulfate Dipot Chlr [Glucosamine] 1,000 mg PO DAILY 03/11/17 [History ] GuaiFENesin/Dextromethorphan [Tussin Dm Syrup] 10 ml PO Q4H PRN 03/11/17 [ History] Metformin HCl [Glucophage] 1,000 mg PO BID 03/11/17 [History] MetroNIDAZOLE [[place]] 1 appl TP BID 03/11/17 [History] glipiZIDE [Glucotrol] 2.5 mg PO BIDWM 03/11/17 [History] risperiDONE [Risperdal] 2 mg PO HS 03/11/17 [History] Allergies/Adverse Reactions: 3 Allergy/AdvReac Type Severity Reaction Status Date / Time levofloxacin [From Levaquin] Allergy Rash Verified 03/11/17 16:49 Sulfa (Sulfonamide Allergy See Verified 03/11/17 16:49 Antibiotics) Comments sulfamethoxazole Allergy See Verified 03/11/17 16:49 [From Bactrim] Comments trimethoprim [From Bactrim] Allergy See Verified 03/11/17 16:49 Comments Date of admission: 03/11/17 21:49 Primary care physician: [facility]CP [facility] Consults: 03/12/17 03:52 Consult to Physician [CONS] Routine Consulting Provider: Grayson Moss Reason for Consult: UTI; s/p recent urethral dilation Call Completed: No - Patient Status Disposition: Home, Self-Care Condition: Good - Discharge Instructions Follow Up With: [facility] [Primary Care Provider[facility] - Evgeny Wolff [Family Provider] - Hospital course: Patient is a 67-year-old male with past medical history significant for CLL, recent urethral dilation and catheter placement secondary to pinpoint urethral stricture who was transferred from the [facility] on 03/11/17 due to concerns for UTI and hematuria. Patient had a urethral dilatation roughly 1 week ago by urology for urethral stenosis. He has a Brandt catheter in place and is due to have that removed early next week with a voiding trial. However, since his procedure, he's developed some dysuria, frequency, and some slight hematuria. He's had some low -grade fevers. Patient was admitted to medical floor for further workup and management. During patients hospital stay, urology was consulted with recommendations to keep Brandt catheter in place and to follow-up with Dr. Hall on Tuesday for possible voiding trial. Diagnosis of urinary tract infection however was questioned due to patients lack of nitrates on UA and the fact the patient has been afebrile. The patient was treated with a three-day course of IV ceftriaxone and will be discharged without any further treatment for questionable UTI. - Time Spent with Patient Total time spent providing and/or coordinating discharge services: Less than 30 minutes - Constitutional Vitals: Temp Pulse Resp BP Pulse Ox 98.2 F 81 14 130/69 94 03/13/17 11:28 03/13/17 11:28 03/13/17 11:28 03/13/17 11:28 03/13/17 11:28 General appearance: Present: cooperative, A&O X 3, pleasant, no acute distress
[2017-03-13] MEDS: risperiDONE 1 MG TABLET PO SCH (21:48)
[2017-03-14] MEDS: 0.9 % Sodium Chloride 1,000 ML IVC SCH (00:28)
[2017-03-14] MEDS: *HR* Heparin 5,000 UNIT/ML VIAL SQ SCH (05:28)
[2017-03-14] MEDS: Cholecalciferol (D-3) 1,000 UNIT TABLET PO SCH (08:02)
[2017-03-14] MEDS: FLUoxetine 20 MG CAPSULE PO SCH (08:03)
[2017-03-14] MEDS: Gabapentin 300 MG CAPSULE PO SCH (08:03)
[2017-03-14] MEDS: Loratadine 10 MG TABLET PO SCH (08:03)
[2017-03-14] MEDS: cefTRIAXone 1,000 MG in Water for inj. (sterile) 10 ML IVP SCH (08:04)
[2017-03-14] MEDS: METRONIDAZOLE APPL TP SCH (08:07)
[2017-03-14] MEDS: Insulin LISPRO 300 UNITS/3 ML VIAL SQ SCH (08:07)
[2017-03-14 10:35] VITALS: BP 143/76
--- NOTE | 2017-03-14 17:45 | Event Note ---
Date of Encounter: 03/14/17 Time of Encounter: 11:00 Patient completed IV course of antibiotics today and ready to be discharged Awaiting ride from [place]
--- NOTE | 2017-03-15 06:55 | Electrocardiograph Report ---
[address] [address] Test Date: 2017-03-11 Pat Name: Seven Baum Department: 104 Room: 3A63 Gender: M Title Clerk: : 1950 Requested By: Brandon Koo Order Number: [id number] Reading MD: Jose Alejandro Guerra MD Measurements Intervals [place] Rate: 75 P: 31 MI: 209 QRS: 21 QRSD: 94 T: 84 QT: 409 QTc: 437 Interpretive Statements SINUS RHYTHM BASELINE ARTIFACT Electronically Signed On 03-15-2017 6:53:56 EST by Jose Alejandro Guerra MD
== END 2017-03-14 14:06 | disposition home or self-care (01) ==
LOC: EMEROO 16:48 → 3ANU 16:48
PROVIDERS: ADMIT Pediatrics; ATTEND Hospitalist

== ENCOUNTER 2017-06-02 20:45 | Inpatient (IN) ==
--- NOTE | 2017-06-02 21:01 | Emergency Department Note ---
Disposition Clinical Impression: NSTEMI (non-ST elevated myocardial infarction), LILLIAM (acute kidney injury) Disposition: Admitted As Inpatient Condition: Good Forms: ED Satisfaction Letter General Adult HPI - General Chief complaint: ED Recheck/Abnormal Lab/Rx Stated complaint: Elevated troponin Time Seen by Provider: 06/02/17 20:52 Source: EMS Limitations: no limitations - History of Present Illness Pain Scale: 0 - Related Data Home Medications Medication Instructions Recorded Confirmed Gabapentin [Neurontin] 300 mg PO TID 02/09/17 06/02/17 Levothyroxine [Synthroid] 50 mcg PO 0630 02/09/17 06/02/17 Multivit-Min/Folic/Vit K/Lycop [Hm 1 tab PO DAILY 02/09/17 06/02/17 Mens 50 Plus Adv One Daily] Cholecalciferol (D-3) [Vitamin D] 3,000 unit PO DAILY 03/04/17 06/02/17 Cyclobenzaprine [Flexeril] 10 mg PO TID PRN 03/04/17 06/02/17 Lisinopril [Zestril] 5 mg PO DAILY 03/04/17 06/02/17 Meloxicam 15 mg PO DAILY 03/04/17 06/02/17 Atorvastatin [Lipitor] 40 mg PO HS 03/11/17 06/02/17 Calcium Carbonate/Vitamin D3 1 each PO DAILY 03/11/17 06/02/17 [Calcium 600-Vit D3 200 Tablet] Carboxymethylcellulose Sodium 1 drop BOTH EYES QID PRN 03/11/17 06/02/17 [Refresh Liquigel] FLUoxetine HCl [Prozac] 20 mg PO DAILY 03/11/17 06/02/17 Glucosamine Sulfate Dipot Chlr 1,000 mg PO DAILY 03/11/17 06/02/17 [Glucosamine] Metformin HCl [Glucophage] 1,000 mg PO BID 03/11/17 06/02/17 MetroNIDAZOLE [[place]] 1 appl TP BID 03/11/17 06/02/17 glipiZIDE [Glucotrol] 2.5 mg PO BIDWM 03/11/17 06/02/17 risperiDONE [Risperdal] 2 mg PO HS 03/11/17 06/02/17 Allergies Allergy/AdvReac Type Severity Reaction Status Date / Time levofloxacin [From Levaquin] Allergy Rash Verified 03/11/17 16:49 Sulfa (Sulfonamide Allergy See Verified 03/11/17 16:49 Antibiotics) Comments sulfamethoxazole Allergy See Verified 03/11/17 16:49 [From Bactrim] Comments trimethoprim [From Bactrim] Allergy See Verified 03/11/17 16:49 Comments Past Medical History - Past Medical History Medical history: Reports: diabetes, hypertension, malignancy, thyroid disease Surgical history: Reports: other (urologic surgery) Psychiatric history: Reports: anxiety, depression, PTSD, schizophrenia - Social History Smoking Status: Never smoker Smokeless Tobacco Status: No Alcohol use: Reports: none Drug use: Reports: none Physical Exam - General Limitations: no limitations General appearance: alert, in no apparent distress Course Vital Signs Temperature 97.7 F 06/02/17 20:47 Pulse Rate 95 06/02/17 20:47 Respiratory Rate 18 06/02/17 20:47 Blood Pressure 100/75 06/02/17 20:47 O2 Sat by Pulse Oximetry 93 06/02/17 20:47 Temperature 97.7 F 06/02/17 20:47 Pulse Rate 93 06/02/17 22:43 Respiratory Rate 18 06/02/17 22:43 Blood Pressure 111/75 06/02/17 22:43 O2 Sat by Pulse Oximetry 97 06/02/17 22:43 Oxygen Delivery Oxygen Delivery Room Air Medical Decision Making - Lab Data Result diagrams: 06/02/17 21:05 06/02/17 21:05 Lab Results 06/02/17 06/02/17 06/02/17 Range/Units 21:05 21:05 21:05 WBC 12.4 H (4.3-11.1) K/mcL RBC 3.92 L (4.19-5.50) M/mcL Hgb 12.3 L (12.9-16.9) g/dL Hct 35.9 L (37.5-50.1) % MCV 91.6 (83.0-100.0) fL MCH 31.4 (28.0-33.3) pg MCHC 34.3 (31.6-35.5) g/dL RDW 13.0 (11.5-14.5) % Plt Count 85 L (140-400) K/mcL MPV 10.5 (9.4-12.4) fL Immature Plt Fraction 4.6 (1.1-6.1) % PT 11.2 (9.4-12.1) Seconds INR 1.0 APTT 37.6 H (26.0-36.0) Seconds Sodium 134 L (136-145) mEq/L Potassium 4.5 (3.5-5.1) mEq/L Chloride 100 (98-107) mEq/L Carbon Dioxide 24 (23-29) mEq/L BUN 26 H (8-23) mg/dL Creatinine 1.87 H (0.70-1.30) mg/dL Est GFR ( Amer) 44 L (> 60) Est GFR (Non-Af Amer) 36 L (> 60) BUN/Creatinine Ratio 14 (6-26) Glucose 105 (70-105) mg/dL Calculated Osmolality 283 (280-300) Calcium 9.8 (8.6-10.3) mg/dL Troponin I 0.36 H* (< 0.04) ng/mL Urine Color (Yellow) Urine Clarity (Clear) Urine pH (5.0-8.0) pH Units Ur Specific [place] (1.010-1.025) Urine Protein (Neg-Trace) mg/dL Urine Glucose (UA) (Normal) mg/dL Urine Ketones (Negative) mg/dL Urine Blood (Negative) Urine Nitrite (Negative) Urine Bilirubin (Negative) Urine Urobilinogen (Normal) mg/dL Ur Leukocyte Esterase (Negative) Urine Microscopic RBC (0-3) per hpf Urine Microscopic WBC (0-3) per hpf Ur Squamous Epith Cells (None-Few) per lpf Urine Bacteria (None-Few) per hpf Hyaline Casts (None-Few) per lpf 06/02/17 Range/Units 22:00 WBC (4.3-11.1) K/mcL RBC (4.19-5.50) M/mcL Hgb (12.9-16.9) g/dL Hct (37.5-50.1) % MCV (83.0-100.0) fL MCH (28.0-33.3) pg MCHC (31.6-35.5) g/dL RDW (11.5-14.5) % Plt Count (140-400) K/mcL MPV (9.4-12.4) fL Immature Plt Fraction (1.1-6.1) % PT (9.4-12.1) Seconds INR APTT (26.0-36.0) Seconds Sodium (136-145) mEq/L Potassium (3.5-5.1) mEq/L Chloride (98-107) mEq/L Carbon Dioxide (23-29) mEq/L BUN (8-23) mg/dL Creatinine (0.70-1.30) mg/dL Est GFR ( Amer) (> 60) Est GFR (Non-Af Amer) (> 60) BUN/Creatinine Ratio (6-26) Glucose (70-105) mg/dL Calculated Osmolality (280-300) Calcium (8.6-10.3) mg/dL Troponin I (< 0.04) ng/mL Urine Color Yellow (Yellow) Urine Clarity Clear (Clear) Urine pH 6.5 (5.0-8.0) pH Units Ur Specific [place] 1.008 L (1.010-1.025) Urine Protein Negative (Neg-Trace) mg/dL Urine Glucose (UA) Normal (Normal) mg/dL Urine Ketones Negative (Negative) mg/dL Urine Blood Trace H (Negative) Urine Nitrite Negative (Negative) Urine Bilirubin Negative (Negative) Urine Urobilinogen Normal (Normal) mg/dL Ur Leukocyte Esterase Negative (Negative) Urine Microscopic RBC 0-3 (0-3) per hpf Urine Microscopic WBC 0-3 (0-3) per hpf Ur Squamous Epith Cells Many H (None-Few) per lpf Urine Bacteria None Seen (None-Few) per hpf Hyaline Casts None Seen (None-Few) per lpf Critical Care Time Critical Care Time: Yes Total Critical Care Time: 30 Attestation: The high probability of a clinically significant, sudden or life threatening deterioration of the [] system(s) required my full and direct attention, intervention and personal management. The aggregate critical care time was [] minutes. This time is in addition to time spent performing reported procedures but includes the following: [] Data Review and interpretation [] Patient assessment and monitoring of vital signs [] Documentation [] Medication orders and management Attestation Statement - Attestation Attestation: I examined this patient and my medical decision-making was reviewed with the Resident Physician. I agree with the documented findings, disposition and treatment plan as described except to the extent set forth below. Face to face time provided Patient to ED via EMS from the [facility] due to elevated trop. Patient had presented there with abnormal blood sugars. He appears in NAD on exam. case d/w Dr. Castro, resident physician
--- NOTE | 2017-06-02 21:05 | Emergency Department Note ---
Disposition Clinical Impression: NSTEMI (non-ST elevated myocardial infarction), LILLIAM (acute kidney injury) Disposition: Admitted As Inpatient Condition: Good Forms: ED Satisfaction Letter Time of Disposition: 21:18 General Adult HPI - General Chief complaint: ED Recheck/Abnormal Lab/Rx Stated complaint: Elevated troponin Time Seen by Provider: 06/02/17 20:52 Source: EMS Limitations: no limitations Nursing Notes Reviewed: Yes Vital Signs Reviewed: Yes - History of Present Illness HPI Narrative: Mr. Baum is a very pleasant 67-year-old woman who presented to the [facility] emergency department from the [facility] due to elevated troponin and concern for ACS. He reports that he went to the [place] this morning because he felt like his sugar was low. He goes on to state that he was feeling weak and unsteady on his feet and having to hold onto everything while he was ambulating. He has had several prior incidents of these symptoms. On arrival to the [facility], troponin was 0.4, CK 283, potassium 5.7, glucose 238, BUN 25 and creatinine 2.31. Patient was not hypotensive of 73/47 on arrival was given a 500 mL bolus. Subsequent blood pressure was 112/63 pulse 89. Hemoglobin was 11.9, Hemoccult negative. At that time he had no ischemic changes on his EKG. Patient does have a history of diabetes. No prior history of CAD. No tobacco abuse. On examination today, he denies any active chest pain , shortness of breath or palpitations. His only complaint currently is mild weakness. No other point of this time. Pain Scale: 0 - Related Data Home Medications Medication Instructions Recorded Confirmed Gabapentin [Neurontin] 300 mg PO TID 02/09/17 03/11/17 Levothyroxine [Synthroid] 50 mcg PO 0630 02/09/17 03/11/17 Multivit-Min/Folic/Vit K/Lycop [Hm 1 tab PO DAILY 02/09/17 03/11/17 Mens 50 Plus Adv One Daily] Cholecalciferol (D-3) [Vitamin D] 3,000 unit PO DAILY 03/04/17 03/11/17 Cyclobenzaprine [Flexeril] 10 mg PO TID PRN 03/04/17 03/11/17 Lisinopril [Zestril] 5 mg PO DAILY 03/04/17 03/11/17 Meloxicam 15 mg PO DAILY 03/04/17 03/11/17 Atorvastatin [Lipitor] 40 mg PO HS 03/11/17 03/11/17 Calcium Carbonate/Vitamin D3 1 each PO DAILY 03/11/17 03/11/17 [Calcium 600-Vit D3 200 Tablet] Carboxymethylcellulose Sodium 1 drop BOTH EYES QID 03/11/17 03/11/17 [Refresh Liquigel] FLUoxetine HCl [Prozac] 20 mg PO DAILY 03/11/17 03/11/17 Glucosamine Sulfate Dipot Chlr 1,000 mg PO DAILY 03/11/17 03/11/17 [Glucosamine] Metformin HCl [Glucophage] 1,000 mg PO BID 03/11/17 03/11/17 MetroNIDAZOLE [Rosadan] 1 appl TP BID 03/11/17 03/11/17 glipiZIDE [Glucotrol] 2.5 mg PO BIDWM 03/11/17 03/11/17 risperiDONE [Risperdal] 2 mg PO HS 03/11/17 03/11/17 Allergies Allergy/AdvReac Type Severity Reaction Status Date / Time levofloxacin [From Levaquin] Allergy Rash Verified 03/11/17 16:49 Sulfa (Sulfonamide Allergy See Verified 03/11/17 16:49 Antibiotics) Comments sulfamethoxazole Allergy See Verified 03/11/17 16:49 [From Bactrim] Comments trimethoprim [From Bactrim] Allergy See Verified 03/11/17 16:49 Comments Review of Systems: Constitutional: No fever Vision: No blurred vision ENT: No rhinorrhea Respiratory: No cough Cardiovascular: No chest pain Allergic: No allergies : No blood in urine GI: No blood in stool Hematologic: No bruising Dermatologic: No skin rash Musculoskeletal: No pain in the extremities Neuro: No numbness of the extremities Past Medical History - Past Medical History Medical history: Reports: diabetes, hypertension, malignancy, thyroid disease Surgical history: Reports: other (urologic surgery) Psychiatric history: Reports: anxiety, depression, PTSD, schizophrenia - Social History Smoking Status: Never smoker Smokeless Tobacco Status: No Alcohol use: Reports: none Drug use: Reports: none Physical Exam CONSTITUTIONAL: Alert and oriented X3 in no apparent distress HEAD: Normocephalic; atraumatic. EYES: Ocular movements grossly intact Oropharynx: pink/moist RESP: NRD without use of accessory musculature, CTA b/l with no wheezes/rales/ rhonchi CARD: Regular rhythm, without murmurs, rubs, or gallop ABD: grossly normal, soft, non-tender, no guarding/distention/rigidity SKIN: normal appearance, no pallor/diaphoresis,mottling,jaundice,cyanosis EXT: PT pulses 2+ and symmetrical; no lateralizing edema; no other lesions seen PSYCH: appropriate mood/affect - General Limitations: no limitations General appearance: alert, in no apparent distress Course Course Narrative: Patient was seen and examined at bedside at approximately 2100. VSS. Chart from [facility] was reviewed and we will proceed with NSTEMI protocol and acute kidney injury. Repeat EKG demonstrates normal sinus rhythm without any ST elevations. We will move forward with possible admission for ACS. ASA and Heparin ordered. Patient appears comfortable at this time and agrees to plan. 2129: Spoke with Hospitalist who felt this patient is not a candidate for admission until CBC, BMP, Trop, CXR and Blood Cultures are drawn and resulted. In addition, his BP dropped to 82/60 and gave a fluid bolus. Will monitor for response. 2149: Blood pressure rechecked and was 120/60 x2. Troponin was 0.36. BMP resulted in showed potassium 4.5, creatinine 1.87. Chest x-ray pending and will recall hospitalist for admission upon results. 2243: Spoke with Hospitalist, Dr. Marte who accpeted patient for admission. Vital Signs Temperature 97.7 F 06/02/17 20:47 Pulse Rate 95 06/02/17 20:47 Respiratory Rate 18 06/02/17 20:47 Blood Pressure 100/75 06/02/17 20:47 O2 Sat by Pulse Oximetry 93 06/02/17 20:47 Temperature 97.7 F 06/02/17 20:47 Pulse Rate 94 06/02/17 21:22 Respiratory Rate 18 06/02/17 21:22 Blood Pressure 82/60 06/02/17 21:22 O2 Sat by Pulse Oximetry 95 06/02/17 21:22 Oxygen Delivery Oxygen Delivery Room Air Medical Decision Making - Medical Records Medical records reviewed: Yes I reviewed the patient's medical records. - Lab Data Lab results reviewed: Yes I reviewed the patient's lab results. Result diagrams: 06/02/17 21:05 06/02/17 21:05 Lab Results 06/02/17 06/02/17 06/02/17 Range/Units 21:05 21:05 21:05 WBC 12.4 H (4.3-11.1) K/mcL RBC 3.92 L (4.19-5.50) M/mcL Hgb 12.3 L (12.9-16.9) g/dL Hct 35.9 L (37.5-50.1) % MCV 91.6 (83.0-100.0) fL MCH 31.4 (28.0-33.3) pg MCHC 34.3 (31.6-35.5) g/dL RDW 13.0 (11.5-14.5) % Plt Count 85 L (140-400) K/mcL MPV 10.5 (9.4-12.4) fL Immature Plt Fraction 4.6 (1.1-6.1) % PT 11.2 (9.4-12.1) Seconds INR 1.0 APTT 37.6 H (26.0-36.0) Seconds Sodium 134 L (136-145) mEq/L Potassium 4.5 (3.5-5.1) mEq/L Chloride 100 (98-107) mEq/L Carbon Dioxide 24 (23-29) mEq/L BUN 26 H (8-23) mg/dL Creatinine 1.87 H (0.70-1.30) mg/dL Est GFR ( Amer) 44 L (> 60) Est GFR (Non-Af Amer) 36 L (> 60) BUN/Creatinine Ratio 14 (6-26) Glucose 105 (70-105) mg/dL Calculated Osmolality 283 (280-300) Calcium 9.8 (8.6-10.3) mg/dL Troponin I 0.36 H* (< 0.04) ng/mL Urine Color (Yellow) Urine Clarity (Clear) Urine pH (5.0-8.0) pH Units Ur Specific [place] (1.010-1.025) Urine Protein (Neg-Trace) mg/dL Urine Glucose (UA) (Normal) mg/dL Urine Ketones (Negative) mg/dL Urine Blood (Negative) Urine Nitrite (Negative) Urine Bilirubin (Negative) Urine Urobilinogen (Normal) mg/dL Ur Leukocyte Esterase (Negative) Urine Microscopic RBC (0-3) per hpf Urine Microscopic WBC (0-3) per hpf Ur Squamous Epith Cells (None-Few) per lpf Urine Bacteria (None-Few) per hpf Hyaline Casts (None-Few) per lpf 06/02/17 Range/Units 22:00 WBC (4.3-11.1) K/mcL RBC (4.19-5.50) M/mcL Hgb (12.9-16.9) g/dL Hct (37.5-50.1) % MCV (83.0-100.0) fL MCH (28.0-33.3) pg MCHC (31.6-35.5) g/dL RDW (11.5-14.5) % Plt Count (140-400) K/mcL MPV (9.4-12.4) fL Immature Plt Fraction (1.1-6.1) % PT (9.4-12.1) Seconds INR APTT (26.0-36.0) Seconds Sodium (136-145) mEq/L Potassium (3.5-5.1) mEq/L Chloride (98-107) mEq/L Carbon Dioxide (23-29) mEq/L BUN (8-23) mg/dL Creatinine (0.70-1.30) mg/dL Est GFR ( Amer) (> 60) Est GFR (Non-Af Amer) (> 60) BUN/Creatinine Ratio (6-26) Glucose (70-105) mg/dL Calculated Osmolality (280-300) Calcium (8.6-10.3) mg/dL Troponin I (< 0.04) ng/mL Urine Color Yellow (Yellow) Urine Clarity Clear (Clear) Urine pH 6.5 (5.0-8.0) pH Units Ur Specific [place] 1.008 L (1.010-1.025) Urine Protein Negative (Neg-Trace) mg/dL Urine Glucose (UA) Normal (Normal) mg/dL Urine Ketones Negative (Negative) mg/dL Urine Blood Trace H (Negative) Urine Nitrite Negative (Negative) Urine Bilirubin Negative (Negative) Urine Urobilinogen Normal (Normal) mg/dL Ur Leukocyte Esterase Negative (Negative) Urine Microscopic RBC 0-3 (0-3) per hpf Urine Microscopic WBC 0-3 (0-3) per hpf Ur Squamous Epith Cells Many H (None-Few) per lpf Urine Bacteria None Seen (None-Few) per hpf Hyaline Casts None Seen (None-Few) per lpf - Radiology Data Radiology results reviewed: Yes I reviewed the patient's radiology results.
[2017-06-02] MEDS ORDERED: *HR* Heparin 5,000 UNIT/ML VIAL IVP PRN ×2 (21:20)
[2017-06-02] MEDS ORDERED: Aspirin 81 MG TAB.CHEW PO STA (21:20)
[2017-06-02] MEDS ORDERED: *HR* Heparin 5,000 UNIT/ML VIAL IVP ONE (21:20)
[2017-06-02] MEDS ORDERED: Heparin 25,000 UNIT/500 ML D5W 25,000 UNIT/500 ML BAG IVC SCH (21:30)
[2017-06-02 21:34] LABS: Hemoglobin 12.3 g/dL (12.9-16.9); Mean Corpuscular Volume 91.6 fL (83.0-100.0)
[2017-06-02 21:36] LABS: Hematocrit 35.9 % (37.5-50.1); Immature Platelets 4.6 % (1.1-6.1); Mean Corpuscular HGB Conc 34.3 g/dL (31.6-35.5); Mean Corpuscular Hemoglobin 31.4 pg (28.0-33.3); Mean Platelet Volume 10.5 fL (9.4-12.4); Red Blood Count 3.92 M/mcL (4.19-5.50)
[2017-06-02 21:40] LABS: Prothrombin Time 11.2 Seconds (9.4-12.1)
[2017-06-02] MEDS ORDERED: 0.9 % Sodium Chloride 500 ML IVC ONE (21:40)
[2017-06-02 21:43] LABS: Activated Partial Thrombo Time 37.6 Seconds (26.0-36.0)
[2017-06-02 22:07] LABS: Calcium 9.8 mg/dL (8.6-10.3); Potassium 4.5 mEq/L (3.5-5.1)
[2017-06-02 22:12] LABS: Troponin I 0.36 ng/mL (< 0.04)
[2017-06-02 22:12] LABS: Bilirubin,Urine Negative (Negative); Blood,Urine Trace (Negative); Clarity,Urine Clear (Clear); Color,Urine Yellow (Yellow); Glucose,Urine (UA) Normal (Normal); Ketones,Urine Negative (Negative); Leukocyte Esterase,Urine Negative (Negative); Nitrite,Urine Negative (Negative); PH,Urine 6.5 pH Units (5.0-8.0); Protein,Urine Negative (Neg-Trace); Specific Gravity,Urine 1.008 (1.010-1.025); Urobilinogen,Urine Normal (Normal)
[2017-06-02 22:15] LABS: Bacteria,Urine None Seen per hpf (None-Few); Hyaline Casts,Urine None Seen per lpf (None-Few); RBC,Urine 0-3 per hpf (0-3); Squamous Epithelial Cell,Urine Many per lpf (None-Few); WBC,Urine 0-3 per hpf (0-3)
[2017-06-02] MEDS ORDERED: 0.9 % Sodium Chloride 1,000 ML IVC SCH (22:45)
[2017-06-03] MEDS ORDERED: Naloxone 0.4 MG/ML INJ IVP PRN (04:27)
[2017-06-03] MEDS ORDERED: Dextrose Gel 15 GM/37.5 ML TUBE PO PRN ×2 (04:31)
[2017-06-03] MEDS ORDERED: D5% in Water 1,000 ML IVC PRN (04:31)
[2017-06-03] MEDS ORDERED: *HR* Dextrose 50 % in Water (Syg) 50 ML SYRINGE IVP PRN (04:31)
--- NOTE | 2017-06-03 04:38 | Internal Med History&Physical ---
Date of Encounter: 06/03/17 Time of Encounter: 04:00 Internal Medicine - H&P: HPI Chief complaint: near syncope; + toponin Admitted From: Emergency Dept Plans for Post Hospital Care: Home History of present illness: Mr. Baum is a 67 year old male who presents in transfer from the [facility] urgent [facility] to our ER for concerns of near syncope and positive troponins. He went to the [facility] earlier yesterday evening for emergency refill of his diabetic medications. He felt lightheaded and dizzy and felt as though he was going to pass out. He thought his glucose was low. He was seen by the urgent care there and noted to be hypotensive. He also had positive troponin. He was therefore sent to the ER here for ongoing workup and admission. Upon presentation to the ER, he had a troponin of 0.36 and low blood pressure. He responded to IV fluids. Workup was otherwise unremarkable. He did have evidence of acute kidney injury with a creatinine of 1.87. Because of his cardiac risk factors and presenting symptoms , he was admitted to hospitalist service. Upon my assessment of the patient, he feels better. He denies any chest pain or shortness of breath. He denies any palpitations or diaphoresis. He denied having any symptoms as above when he presented to urgent care. He actually felt he was having an episode of hypoglycemia. He denies any prior history of heart disease. However, he is diabetic and has a family history of heart disease. He denies any recent medication changes. He denies any fevers, cough , congestion, vomiting, diarrhea, nausea, dysuria, or hematuria. Past Med Surg Social Fam HX - Past Medical History Attestation: Yes The following information was validated with the patient. Source: patient, old records reviewed Medical history: diabetes, hypertension, malignancy, thyroid disease Psychiatric history: anxiety, depression, PTSD, schizophrenia - Past Surgical History Surgical History: other (urologic surgery) - Social History Smoking Status: Never smoker Smokeless Tobacco Status: No Alcohol use: none Drug use: none Current living situation: Home - Independent Activity Level: Independent ambulation Recent Out of Country Travel Within the Last 8 Weeks: No - Family History Daughter Adopted: No Father Adopted: No Family Member Ethnicity: Non- Living Status: Hx Family Neurologic Disorders: Yes (Alzheimers) Internal Medicine - H&P: Meds Gabapentin [Neurontin] 300 mg PO TID 02/09/17 [History] Levothyroxine [Synthroid] 50 mcg PO 0630 02/09/17 [History] Multivit-Min/Folic/Vit K/Lycop [Hm Mens 50 Plus Adv One Daily] 1 tab PO DAILY [History] Cholecalciferol (D-3) [Vitamin D] 3,000 unit PO DAILY 03/04/17 [History] Cyclobenzaprine [Flexeril] 10 mg PO TID PRN 03/04/17 [History] Lisinopril [Zestril] 5 mg PO DAILY 03/04/17 [History] Meloxicam 15 mg PO DAILY 03/04/17 [History] Atorvastatin [Lipitor] 40 mg PO HS 03/11/17 [History] Calcium Carbonate/Vitamin D3 [Calcium 600-Vit D3 200 Tablet] 1 each PO DAILY [History] Carboxymethylcellulose Sodium [Refresh Liquigel] 1 drop BOTH EYES QID PRN [History] FLUoxetine HCl [Prozac] 20 mg PO DAILY 03/11/17 [History] Glucosamine Sulfate Dipot Chlr [Glucosamine] 1,000 mg PO DAILY 03/11/17 [History ] Metformin HCl [Glucophage] 1,000 mg PO BID 03/11/17 [History] MetroNIDAZOLE [Rosadan] 1 appl TP BID 03/11/17 [History] glipiZIDE [Glucotrol] 2.5 mg PO BIDWM 03/11/17 [History] risperiDONE [Risperdal] 2 mg PO HS 03/11/17 [History] 3 Allergy/AdvReac Type Severity Reaction Status Date / Time levofloxacin [From Levaquin] Allergy Rash Verified 03/11/17 16:49 Sulfa (Sulfonamide Allergy See Verified 03/11/17 16:49 Antibiotics) Comments sulfamethoxazole Allergy See Verified 03/11/17 16:49 [From Bactrim] Comments trimethoprim [From Bactrim] Allergy See Verified 03/11/17 16:49 Comments - Constitutional Constitutional: weakness, no chills, no fever(s), no night sweats - EENT Eyes: no blurry vision, no change in vision Ears: no ear pain, no tinnitus Nose, mouth and throat: no nasal congestion, no nasal discharge, no sinus pressure, no sore throat - Cardiovascular Cardiovascular ROS IM: diaphoresis, dyspnea, dyspnea on exertion, lightheadedness, other (+near syncope), no chest pain, no irregular heart rhythm , no palpitations, no paroxysmal nocturnal dyspnea, no syncope - Respiratory Respiratory: no cough, no hemoptysis, no chest congestion, no excessive phlegm production, no change in phlegm color - Gastrointestinal Gastrointestinal: no abdominal pain, no diarrhea, no hematemesis, no hematochezia, no melena, no nausea, no vomiting - Genitourinary Genitourinary ROS male: no dysuria, no flank pain, no hematuria - Musculoskeletal Musculoskeletal ROS IM: no arthralgias, no back pain, no muscle cramps, no muscle weakness - Integumentary Integumentary IM: no rash, no jaundice - Neurological Neurological ROS: dizziness, weakness, no confusion, no convulsions, no focal weakness, no frequent falls, no headache(s) - Psychiatric Psychiatric: no anxiety, no depression - Endocrine Endocrine IM: no polydipsia, no polyuria - Hematologic/Lymphatic Hematologic/Lymphatic: no easy bruising, no lymphadenopathy - Allergic/Immunologic Allergic/Immunologic: no wheezing, no GI upset with certain foods - Constitutional Vitals: Temp Pulse Resp BP Pulse Ox 98.1 F 87 16 107/68 97 06/03/17 01:08 06/03/17 01:08 06/03/17 01:08 06/03/17 01:08 06/03/17 01:08 General appearance: Present: cooperative, A&O X 3, pleasant, no acute distress, answers questions appropriately - Head Head exam: Present: atraumatic, normal inspection - Eye Eye exam: Present: EOMI, normal appearance, PERRL. Absent: scleral icterus Pupils: Present: normal accommodation - ENT ENT exam: Present: mucous membranes dry, normal exam, normal oropharynx - Neck Neck exam general surgery: Present: full ROM, supple. Absent: lymphadenopathy, tenderness, nuchal rigidity, thyromegaly - Expanded Neck Exam Neck exam: Absent: carotid bruit - Respiratory Respiratory exam: Present: CTAB. Absent: chest wall tenderness, rales, respiratory distress, rhonchi, wheezes - Cardiovascular Cardiovascular exam: Present: distant heart sounds, RRR, +S1, +S2, systolic murmur (grade 2-3). Absent: diastolic murmur, JVD - GI/Abdominal GI/Abdominal exam: Present: normal bowel sounds, soft. Absent: guarding, hepatomegaly, mass, rebound, splenomegaly, tenderness - Extremities Exam Extremities exam: Present: full ROM, normal capillary refill, warm, radial pulses palpable and symmetrical. Absent: calf tenderness, joint swelling, pedal edema, tenderness - Back Exam Back exam: Present: normal inspection. Absent: CVA tenderness (L), CVA tenderness (R) - Neurological Exam Neurological exam: Present: alert, CN II-XII intact, oriented X3, no focal deficits - Psychiatric Psychiatric exam: Present: normal affect, normal mood - Skin Skin exam: Present: dry, warm. Absent: rash Internal Med - H&P Results - Labs CBC & Chem 7: 06/02/17 21:05 06/02/17 21:05 - EKG Data -: EKG Interpreted by Myself - EKG Data Prior EKG available for review: no EKG comments: 06/03/17 04:43 NSR; no acute ST-T changes - Diagnostic Studies Chest x-ray Status: image reviewed by me (negative) - VTE Reasons for not Prescribing Prophylaxis: Not indicated-Anticoagulated or INR therapeutic - Assessment and plan (1) Near syncope Current Visit: Yes Status: Acute Assessment and plan: 1. Will proceed with ECHO, Carotid Dopplers, serial troponins, and EKG's. 2. Monitor glucose closely. 3. Suspect hypovolemia and/or bp meds as culprits. 4. Hold SOCORRO and bp meds for now. 5. Monitor on telemetry. (2) Troponin level elevated Current Visit: Yes Status: Acute Assessment and plan: 1. Consult cardiology. 2. Heparin drip initiated in ER -- continue for now. 3. I'm not convinced he had NSTEMI; suspect troponin elevation due to low BP and subsequent heart strain. 4. Nonetheless, will proceed with work-up. (3) LILLIAM (acute kidney injury) Current Visit: Yes Status: Acute Assessment and plan: 1. Hold SOCORRO. 2. IVF hydration. 3. Monitor renal function. 4. Consult nephrology if fails to improve. (4) DVT prophylaxis Current Visit: No Status: Acute Assessment and plan: 1. Heparin drip as above.
[2017-06-03] MEDS: 0.9 % Sodium Chloride 1,000 ML IVC SCH ×2 (04:44→11:49)
[2017-06-03 05:48] LABS: Basophils % 0.4 %; Mean Corpuscular Hemoglobin 31.4 pg (28.0-33.3)
[2017-06-03 05:50] LABS: Eosinophils # 0.1 K/mcL (0.0-0.6); Eosinophils % 0.7 %; Hematocrit 32.8 % (37.5-50.1); Hemoglobin 11.3 g/dL (12.9-16.9); Immature Granulocytes % 0.7 % (0-4); Immature Platelets 4.7 % (1.1-6.1); Lymphocytes % 67.4 %; Mean Corpuscular HGB Conc 34.5 g/dL (31.6-35.5); Mean Corpuscular Volume 91.1 fL (83.0-100.0); Mean Platelet Volume 11.1 fL (9.4-12.4); Monocytes # 0.6 K/mcL (0.0-1.3); Monocytes % 5.1 %; Neutrophils # 2.8 K/mcL (1.6-8.9); Nucleated Red Blood Cells 0.2 /100 WBC (0); Red Cell Distribution Width 12.9 % (11.5-14.5); Segmented Neutrophils % 25.7 %
[2017-06-03 05:52] LABS: Lymphocytes # 7.4 K/mcL (0.6-4.6)
[2017-06-03 05:53] LABS: Platelet Count 78 K/mcL (140-400)
[2017-06-03 06:06] LABS: Platelet Estimate Decreased (Normal); Reactive Lymphocytes Present (Not Present)
[2017-06-03 06:13] LABS: Albumin 3.6 g/dL (3.5-5.7); Albumin/Globulin Ratio 2.4 (1.1-2.2); Bilirubin,Total 0.8 mg/dL (0.3-1.0); Calcium 9.3 mg/dL (8.6-10.3); Globulin 1.5 g/dL (2.4-3.5); Magnesium 2.1 mg/dL (1.6-2.6); Potassium 4.6 mEq/L (3.5-5.1); Total Protein 5.1 g/dL (6.4-8.9)
[2017-06-03] MEDS: Insulin LISPRO 300 UNITS/3 ML VIAL SQ SCH ×4 (08:14→21:17)
[2017-06-03] MEDS: Aspirin 81 MG TAB.CHEW PO SCH (08:14)
[2017-06-03 08:45] LABS: Estimated Average Glucose 123 mg/dl; Hemoglobin A1C 5.9 %
--- NOTE | 2017-06-03 09:08 | Cardiology Consult Note ---
<Shahab Thomas - Last Filed: 06/03/17 15:28> Date of Encounter: 06/03/17 Time of Encounter: 10:06 Assessment and Plan (1) NSTEMI (non-ST elevated myocardial infarction) Current Visit: Yes Status: Acute Had chest pain this morning at 2AM, reproducible, aching, 3/10, possible radiation into right arm. Patient is poor historian. Elevated troponin x2 0.36, 0.80 EKG showed no ischemic changes Plan: Recommend catheterization Echo, carotid dopplers, and serial troponins pending at this time Currently on heparin drip (2) Near syncope Current Visit: Yes Status: Acute Plan: See note above (3) LILLIAM (acute kidney injury) Current Visit: Yes Status: Acute Cr 1.87 improved today to 1.62 Most likely secondary to hypovolemia Discussion w patient/family: The assessment and plan as outlined above was discussed with the patient and/or family members who expressed understanding and agreement. All questions were answered. Thank you for involving us in the care of your patient. Please call with any questions. History of Present Illness Consult date: 06/03/17 Requesting physician: Cesar Munson Consult reason: Elevated troponin and near syncope Chief complaint: Weakness History of present illness: Mr. Baum is a 67 year old male with a past medical history of type 2 diabetes, hypertension, CLL, and thyroid [place] for generalized [place]. The [facility] to the [facility] prior to arrival at [place] and while there the patient was found to have a troponin of 0.04 as well as a blood pressure of 73/47 which responded to fluid bolus. The patient states that over the past 2 days he has been experiencing weakness which he feels like he is going to pass out. States that it felt similar to a year ago when he was hypoglycemic. However the patient has normal glycemic at this time. Vomiting emergency department the patient was found to have a troponin of 0.36 and was admitted to the hospital for NSTEMI. Patient denies any chest pain over the past 2 days. However, he states since 2 AM this morning he has had left-sided chest pain which she attributes to people pushing on his chest and did have episode of nausea yesterday. States he is a symptomatically at this time. He has been having his blood pressure medications adjusted over the past 1 month. States he has had a stress test done in the past but that was 2-3 years ago and was done [place] and he was told that was normal. No other cardiac history no history of smoking. Past Med Surg Social Fam HX - Past Medical History Medical history: diabetes, hypertension, malignancy, thyroid disease Psychiatric history: anxiety, depression, PTSD, schizophrenia - Past Surgical History Surgical History: other (urologic surgery) - Social History Smoking Status: Never smoker Smokeless Tobacco Status: No Alcohol use: none Drug use: none - Family History Daughter Adopted: No Father Adopted: No Family Member Ethnicity: Non- Living Status: Hx Family Neurologic Disorders: Yes (Alzheimers) Medications and Allergies Gabapentin [Neurontin] 300 mg PO TID 02/09/17 [History] Levothyroxine [Synthroid] 50 mcg PO 0630 02/09/17 [History] Multivit-Min/Folic/Vit K/Lycop [Hm Mens 50 Plus Adv One Daily] 1 tab PO DAILY [History] Cholecalciferol (D-3) [Vitamin D] 3,000 unit PO DAILY 03/04/17 [History] Cyclobenzaprine [Flexeril] 10 mg PO TID PRN 03/04/17 [History] Lisinopril [Zestril] 5 mg PO DAILY 03/04/17 [History] Meloxicam 15 mg PO DAILY 03/04/17 [History] Atorvastatin [Lipitor] 40 mg PO HS 03/11/17 [History] Calcium Carbonate/Vitamin D3 [Calcium 600-Vit D3 200 Tablet] 1 each PO DAILY [History] Carboxymethylcellulose Sodium [Refresh Liquigel] 1 drop BOTH EYES QID PRN [History] FLUoxetine HCl [Prozac] 20 mg PO DAILY 03/11/17 [History] Glucosamine Sulfate Dipot Chlr [Glucosamine] 1,000 mg PO DAILY 03/11/17 [History ] Metformin HCl [Glucophage] 1,000 mg PO BID 03/11/17 [History] MetroNIDAZOLE [Rosadan] 1 appl TP BID 03/11/17 [History] glipiZIDE [Glucotrol] 2.5 mg PO BIDWM 03/11/17 [History] risperiDONE [Risperdal] 2 mg PO HS 03/11/17 [History] 3 Allergy/AdvReac Type Severity Reaction Status Date / Time levofloxacin [From Levaquin] Allergy Rash Verified 03/11/17 16:49 Sulfa (Sulfonamide Allergy See Verified 03/11/17 16:49 Antibiotics) Comments sulfamethoxazole Allergy See Verified 03/11/17 16:49 [From Bactrim] Comments trimethoprim [From Bactrim] Allergy See Verified 03/11/17 16:49 Comments All Systems Review: The remainder of the systems were reviewed and are negative - Constitutional Constitutional: weakness, no headache(s) - EENT Eyes: no blurred vision - Cardiovascular Cardiovascular: radiating jaw, neck or arm pain (right arm ), lightheadedness, no chest pain at rest, no chest pain with exertion, no diaphoresis, no dyspnea at rest, no dyspnea on exertion, no irregular heart rhythm, no palpitations, no rapid heart rate, no syncope - Respiratory Respiratory: no cough, no dyspnea - Gastrointestinal Gastrointestinal: nausea, no abdominal pain - Genitourinary Genitourinary: no dysuria Physical Examination Vital Signs, Last 4 Hours Temp Pulse Resp BP Pulse Ox 06/03/17 06:46 97.9 F 84 14 133/64 95 General: Conversant, No Apparent Distress HEENT: Atraumatic, Normocephaly, Mucus Membranes Moist Neck: No JVD, Normal carotid pulses Cardiac: Reg Rate and Rhythm, Normal S1 and S2, No Murmur Lungs: Normal Breath Sounds, No Wheeze, Rales, Rhonchi Neuro: Alert and responsive, No focal deficits noted Abdomen: Soft, Non-Tender Skin: No rashes noted on visualized skin Musculoskeletal: No Chest Wall Tenderness Extremities: No Clubbing, No Cyanosis, No Edema, Normal Pulses Results 06/03/17 05:25 06/03/17 05:25 Lab Results 06/03/17 06/03/17 06/03/17 05:25 05:25 05:25 WBC 10.9 Hgb 11.3 L Hct 32.8 L Plt Count 78 L Sodium 135 L Potassium 4.6 Chloride 103 Carbon Dioxide 25 BUN 25 H Creatinine 1.62 H Glucose 208 H Calcium 9.3 Magnesium 2.1 Total Bilirubin 0.8 AST 34 ALT 36 Alkaline Phosphatase 65 Troponin I 0.80 H* Consult Discharge Plan - Plan [facility]errals: [facility]Primary Care Provider[facility] - Evgeny Wolff [Family Provider] - <Sukhwinder Robb - Last Filed: 06/04/17 13:14> Date of Encounter: 06/03/17 Time of Encounter: 12:00 - Attending Attestation I examined this patient and my medical decision-making was reviewed with the Resident Physician. I agree with the documented findings, disposition and treatment plan as described except to the extent set forth below. CC: weakness and fatique [place] with complaint of generalized weakness, worsening over last three days, not associated with nausea, palptitations or shortness of breath. He reports one episode of left sided chest pain, occurred around 2 AM day of admission, mild 3/10, comes and goes, started with chest palpation, can be relieved with change in position. He was found to have elevated troponin of .04 in the [place] ER, and transferred to [facility]. He is currently pain free,m resing comfortably, denies complaints. PMH: reviewed, confirmed with pt, old records. PE: Pt seen and examined, chart reviewed, findings as above IMP: 1. Troponin elevation: .04 to 0.8 over last six hours, `suggestive elevation pattern consistent with ACS. Is now pain free, no acute EKG changes, recommend LHC/Poss, risks and benefits discussed, pt agrees to proceed. 2. CKD - creatine improved with rehydration, 1.87 to 1.62 with rehydration, continue to monitor closely. 3. hypertension: controlled on current meds when he checks at home. 4. Hyperlipidemia, on statin, reports is at goal on most recent lab work 5. NIDDM, primary service monitoring, Assessment and Plan Discussion w patient/family: The assessment and plan as outlined above was discussed with the patient and/or family members who expressed understanding and agreement. All questions were answered. Thank you for involving us in the care of your patient. Please call with any questions. History of Present Illness History of present illness: Mr. Baum is a 67 year old male All Systems Review: The remainder of the systems were reviewed and are negative Physical Examination Vital Signs, Last 4 Hours Temp Pulse Resp BP Pulse Ox 06/04/17 10:34 97.9 F 90 16 134/65 95 Results 06/04/17 09:05 06/04/17 09:05 Lab Results 06/03/17 06/03/17 06/04/17 16:15 18:54 09:05 WBC Hgb Hct Plt Count APTT 40.2 H Sodium 141 Potassium 4.6 Chloride 110 H Carbon Dioxide 26 BUN 17 Creatinine 1.10 Glucose 129 H Calcium 9.0 Troponin I 0.48 H* 06/04/17 09:05 WBC 9.7 Hgb 12.3 L Hct 36.5 L Plt Count 94 L APTT Sodium Potassium Chloride Carbon Dioxide BUN Creatinine Glucose Calcium Troponin I
[2017-06-03] MEDS: Acetaminophen 325 MG TABLET PO PRN (11:54)
--- NOTE | 2017-06-03 12:00 | Pre-Sedation Evaluation ---
Pre-sedation evaluation - Pre-sedation checklist Date of procedure: 06/03/17 Procedure: LHC Recent Vitals: Last Vital Signs Temp 98.2 F 06/03/17 11:14 Pulse 79 06/03/17 11:14 Resp 14 06/03/17 11:14 BP 124/73 06/03/17 11:14 Pulse Ox 91 06/03/17 11:14 ASA Classification *see protocol: CLASS II-Mild systemic disease
[2017-06-03] MEDS ORDERED: *HR* Heparin 10,000 UNIT/10 ML VIAL ONE (17:12)
[2017-06-03] MEDS ORDERED: ISOVUE-370 200 ML INFUS..BTL IV ONE (17:12)
[2017-06-03] MEDS ORDERED: Heparin 1,000 UNITS/500 mL 500 ML ONE (17:12)
[2017-06-03] MEDS ORDERED: 0.9 % Sodium Chloride 1,000 ML ONE ×2 (17:12→17:34)
[2017-06-03] MEDS ORDERED: Nitroglycerin 1,000 MCG/10 ML VIAL IV ONE (17:13)
[2017-06-03] MEDS ORDERED: *HR* Midazolam HCl 2 MG/2 ML VIAL ONE (17:33)
[2017-06-03] MEDS ORDERED: *HR* FentaNYL (PF) 100 MCG/2 ML VIAL ONE (17:34)
--- NOTE | 2017-06-03 18:24 | Invasive Diagnostic Lab Proc ---
Name: Seven Baum Date of Study: 06/03/2017 Date: 1950 Ht: 66.1in Medical Record#: [id number] Age: 67 Wt: 224.87lb Gender: Male BSA: 2.11 Order #: [id number] BMI: 36.14 Physicians Procedure Physician: Preethi Paris MD Referring MD: Referring MD: Staff Name Position Time In Wendy Bergeron RT Monitor 05:46 PM Milagros Mendez RT (R) Scrub 05:46 PM Jeri Almendarez RN Generation Mechanic Helper 05:46 PM Indications Indication Non-Stemi Procedures Performed Procedure L HRT ARTERY/VENTRICLE ANGIO Pre-Procedure Checklist Informed consent is complete signed and on chart. H&P is on chart. ID band is on and ID verified with patient. Patient NPO for procedure The procedure was described for the patient and questions were answered. Blood Pressure: 162/93 ECG is on chart. Rhythm: NSR Plan of Care Patient will tolerate the procedure without complications. Adequate level of comfort will be maintained. Hemodynamics will remain stable Patient will recover from procedure without complications. Respiratory function will be maintained. Cardiac rhythm will remain stable. Patient temperature will be maintained. Patient and/or family have verbalized understanding of the procedure. Patient Education Chief Complaint/Reason for Test: Cardiac Cath Developmental Category: Adult (18-64 years) Developmentally Appropriate for Age: Yes Learning Barriers: None Education Needs: Procedure Education Method: Verbal Information Taught: Cardiac Cath Educational Evaluation: Able to repeat information Intravenous Access Time IV Size Location DC'd Fluid/Drip Rate Units RN 18g 1 /" Patent On Arrival Lt Arm Allergies Sulfa (Sulfonamide Antibiotics) sulfamethoxazole trimethoprim levofloxacin Vital Signs Time BP (mmHg) HR (bpm) O2 Sat. RR (bpm) LOC 05:48 PM / % 5 = Fully awake and oriented or at pre-proc level 05:48 PM / % 4 = Oriented but drowsy 05:47 PM 162 / 93 % 05:52 PM 155 / 82 88 98 % 05:57 PM 134 / 83 89 95 % 06:02 PM 129 / 79 87 96 % 06:07 PM 112 / 76 92 96 % 06:12 PM 139 / 82 90 % Procedural Medications Time Medication Dose Units Method Given By 05:47 PM Oxygen 2 L/min nasal cannula Jeri Almendarez RN 05:47 PM Versed 1 mg Intravenous Jeri Almendarez RN 05:48 PM Fentanyl 50 mcg Intravenous Jeri Almendarez RN 05:58 PM Lidocaine 2% 10 ml Subcutaneous Preethi Paris MD ASA Classification: CLASS II- Mild systemic disease (i.e. well-controlled diabetes, hypertension, asthma, cigarette smoking) Anastasia Score Preprocedure Postprocedure Activity 2- Moves 4 extremities sustained head lift Activity 2- Moves 4 extremities sustained head lift Circulation 2- SBP +/= 20 points of pre-anesthetic level Circulation 2- SBP +/= 20 points of pre-anesthetic level Consciousness 2- Awake and alert oriented x 3 Consciousness 2- Awake and alert oriented x 3 O2 Saturation 2- Able to maintain O2 satruation of 92% on room air O2 Saturation 2- Able to maintain O2 satruation of 92% on room air Respiratory 2- Able to deep breathe and cough well Respiratory 2- Able to deep breathe and cough well Total Score 10 Total Score 10 Contrast Agent: Isovue Diagnostic Contrast: 49 ml Total Contrast: 49 ml Fluoro Dose: 360 mGy Procedure Log Time Note Enter By 05:32 PM CathStat 05:46 PM Vitals capture started with the following parameters, Patient=Adult, Interval=5 min, Initial Mizszwez=037 mmHg, Deflation Rate=5 mmHg, Cuff placed on Right Arm 05:46 PM Pt arrived to slab lifting supervisor 2 at 17:46 05:46 PM Wendy Bergeron RT Position: Monitor Time in: 17:46 05:46 PM Milagros Mendez RT (R) Position: Scrub Time in: 17:46 05:47 PM Jeri Almendarez RN Position: Generation Mechanic Helper Time in: 17:46 05:47 PM Patient charges- Angio tray pack, Navilyst 3mm J, Pulse Oximetry and ACIST tubing and transducer :47 PM Case Delayed No :47 PM Physician arrived 17:47 :47 PM ASA Class CLASS II- Mild systemic disease (i.e. well-controlled diabetes, hypertension, asthma, cigarette smoking) 05:47 PM Meet and greet completed :47 PM Sign in performed according to hospital policy. :47 PM Procedure start 17:47 05:47 PM UZUU=031/93 mmhg 05:47 PM Time: 17:47 Oxygen on at 2 L/min per nasal cannula by Jeri Almendarez RN reyna :47 PM Time: 17:47 Versed 1 mg Intravenous Given by Jeri Almendarez RN reyna :48 PM Time: 17:48 Fentanyl 50 mcg Intravenous Given by Jeri Almendarez RN reyna :48 PM Time: 17:48 Patient comfortable and pain free: Yes 48 PM Time: 17:48LOC: 5 = Fully awake and oriented or at pre-proc level dsp:48 PM Clinical Presentation: Non-STEMI 05:52 PM HR=88 bpm, GTVL=943/82 mmhg, SpO2=98.0 % 05:57 PM HR=89 bpm, JCIY=969/83 mmhg, SpO2=95.0 % 05:58 PM Pressure channel 1 zeroed. 05:58 PM Time out performed according to hospital policy 59 PM Time: 17:58 10 ml Lidocaine 2% to right groin Subcutaneous Given by Preethi Paris MD :59 PM Micro-Introducer Kit utilized for sheath placement 06:00 PM Bolus angiogram of right Femoral complete: hand injection 06:00 PM Access obtained by percutaneous puncture. 6Fr 10cm Terumo [place] sheath placed in right Femoral artery. [id number] ell 06:01 PM 5Fr FR 4 catheter inserted over the wire [facility] 06:02 PM HR=87 bpm, XZWW=710/79 mmhg, SpO2=96 % 06:02 PM wire removed 06:02 PM RCA angiography performed in multiple views. 06:02 PM Recorded Pressure: Ao, HR=87, Condition=Condition 1 (Aorta) Ao 85/63/74 06:02 PM Catheter removed 06:02 PM 5Fr FL 4 catheter inserted over the wire [facility] 06:02 PM wire removed dsp 06:03 PM LCA angiography performed in multiple views. 06:03 PM Time: 17:48 Patient comfortable and pain free: Yes dspell 06:03 PM Time: 17:48LOC: 4 = Oriented but drowsy dspell 06:04 PM Recorded Pressure: Ao, HR=88, Condition=Condition 1 (Aorta) Ao 105/73/88 06:05 PM Catheter removed 06:06 PM 5Fr Pigtail catheter inserted over the wire [facility] 06:06 PM wire removed dspell 06:06 PM Catheter selectively placed in left ventricle dspell 06:06 PM Recorded Pressure: LV, HR=94, Condition=Condition 1 (Left Ventricle) LV 117/14/22 06:07 PM HR=92 bpm, GMTR=270/76 mmhg, SpO2=96 % 06:07 PM Recorded Pressure: LV, Ao, HR=94, Condition=Condition 1 (Left Ventricle) LV 133/11/23, (Aorta) Ao 133/80/105 06:07 PM pressures recorded 06:07 PM wire and catheter removed 06:08 PM Procedure completed at 18:08 06:08 PM Did you address CATHY flow and Dominance? Yes ell:08 PM Sign out completed: Radiation Dose 359.56 mGy Fluoro Time: 1.7 Isovue 370 - 200ml contrast 49 ml given by Preethi Paris MD. Complications: NoneCardiac Rehab Consult needed: NoConfirmed administered medications: Yes 06:09 PM Isovue 370 - 200ml,1 Bottle(s) used. dspell 06:09 PM Arterial sheath pulled, Angio-seal closure device used and was Successful [id number] S/N. ell 06:09 PM Estimated Blood Loss: minimal dsp 06:09 PM Post ECG NSR dspell 06:09 PM Post Blood Pressure 112/76 dspell 06:10 PM Information taught Cardiac Cath and Angioseal dspell 06:10 PM Education needs Procedure, Plan of Care, and Responsibilities of Patient in Care dspell 06:10 PM Learning barriers :None ell 06:10 PM Education Methods Verbal dspell 06:10 PM Education evaluation Able to repeat information 06:10 PM Site status No bleeding/hematoma - Rt Groin as reported by Milagros Mendez RT (R) at 18:10 dspell 06:10 PM Opsite applied dspell 06:10 PM Plavix, Effient or Brilinta given No dspell 06:10 PM Delay to floor No [facility] 06:10 PM Patient out of room: 18:10 ell 06:10 PM no family at this time dspell 06:10 PM Complications: None 06:11 PM Fluoro Time: 1.7 dsp 06:11 PM Isovue 370 - 200ml contrast 49 ml given by preethi paris. 06:11 PM Radiation Dose 359.56 [facility]Gy [email or web address] 06:12 PM 18:12 Post Pulses Bilateral DP & PT 1+ dspell 06:12 PM Coronary Dominance: Co-dominant dsp 06:12 PM Left Main Coronary Artery with 0% stenosis dspell 06:12 PM Proximal Left Anterior Descending Coronary Artery with 0% stenosis. If graft is supplying this territory, 0 % stenosis. dsp 06:12 PM Mid/Distal Left Anterior Descending Coronary Artery and diagonal branches with 0% stenosis. If graft is supplying this area, 0 % [email or web address] 06:12 PM Circumflex, Obtuse Marginal, Left Posterior Descending, and Left Posterolateral Coronary Arteries with 0 % stenosis. If graft is supplying this area, 0 % stenosis dspell 06:12 PM Right Coronary, Right Posterior Descending Arteries with Right Posterolateral and Acute Marginal branches with 0 % stenosis. If graft is supplying this area, 0 % stenosis dsp:12 PM Ramus with 0% stenosis. If graft is supplying this area, 0 % stenosis dspell 06:12 PM HR=90 bpm, DGWE=431/82 mmhg Complications Complication None None Hemodynamics Pressures Site Systolic/A Wave Diastolic/V Wave Mean AO 85 63 74 AO 105 73 88 LV 117 14 22 LV 133 11 23 AO 133 80 105 Post Procedure Information Blood Pressure: 112/76 mmHg Rhythm: NSR Post procedural instructions were given Site Checks Time Location Status Staff Sheath In? Note 06:10 PM Rt Groin No bleeding/hematoma Milagros Mendez RT (R) Pulses Time Site Pre-Procedure Post-Procedure Note 6:12:00 PM Bilateral DP & PT 1+ Updated by RT Toña (R) on 06/03/2017 6:17:40 PM Milagros Mendez RT electronically signed on 06/03/2017 6:19:42 PM with status of Final
--- NOTE | 2017-06-03 19:41 | Internal Med Progress Note ---
Date of Encounter: 06/03/17 Time of Encounter: 11:00 - Assessment and plan (1) DVT prophylaxis Current Visit: Yes Status: Acute Assessment and plan: Heparin. Continue to encourage ambulation. (2) LILLIAM (acute kidney injury) Current Visit: Yes Status: Acute Assessment and plan: Renal function improved over admission. Serum creatinine 1.62, GFR 43. SOCORRO inhibitor has been held, continue IV fluid hydration Continue to monitor labs Consider nephrology consult if no significant improvement. Avoid nephrotoxins. Patient had LHC today. (3) Near syncope Current Visit: Yes Status: Acute Assessment and plan: Patient reported near syncopal episode yesterday. Today his gait is steady and he denies any dizziness. Patient had elevated troponin, chest x-ray was negative echocardiogram showed LVEF of 60-65%, mild LV DD, no significant valvular dysfunction, no apparent metabolic cause, labs most likely noncontributory. Bilateral carotid duplex showed right side with nonstenotic plaque, left side has 6079% stenosis that may be related to torturous vessel. Vital signs stable and within normal limits. Most likely secondary to dehydration. Cardiology evaluated patient, LHC performed today. Continue telemetry Continue monitoring for safety Continue monitor vitals (4) Troponin level elevated Current Visit: Yes Status: Acute Assessment and plan: Cardiology consult, LHC performed today. Patient placed on heparin drip, and has been stopped. Suspect troponin elevation due to hypovolemia, hypotension, demand ischemia. LHC report appears to show no coronary artery disease, left main 0% stenosis, proximal LAD 0% stenosis, mid/distal LAD and diagonal with 0% stenosis, circumflex, obtuse marginal, left posterior descending and left posterior lateral 0% stenosis, RCA, right posterior descending, acute marginal branches 0 % stenosis, ramus with 0% stenosis. Patient will be discharged on home medications Continue telemetry Prepared at discharge in the morning. - Time Spent With Patient Total time spent is greater than 50% in coordination of care (as documented) at patient's floor/unit and/or counseling patient: less than 15 minutes - Subjective Interval history: Patient was seen and assessed at bedside at 11:10 AM. Patient states that he is feeling better. He is ambulating around the department and room without any difficulty. He denies dizziness. He denies headache or chest pain, no shortness of breath, nausea, vomiting, abdominal pain. LHC planned for today. - Constitutional Vitals: Temp Pulse Resp BP Pulse Ox 98.1 F 92 16 165/71 93 06/03/17 15:07 06/03/17 18:59 06/03/17 18:59 06/03/17 18:59 06/03/17 18:59 General appearance: Present: cooperative, A&O X 3, pleasant, no acute distress, answers questions appropriately - Head Head exam: Present: atraumatic, normal inspection, normocephalic - Eye Eye exam: Present: normal appearance, conjuntiva pink, sclera anicteric - Neck Neck exam general surgery: Present: supple, trachea midline. Absent: lymphadenopathy - Respiratory Respiratory exam: Present: decreased breath sounds, CTAB. Absent: accessory muscle use, chest wall tenderness, rales, respiratory distress, rhonchi, wheezes - Cardiovascular Cardiovascular exam: Present: RRR, +S1, +S2. Absent: diastolic murmur, gallop, rubs, systolic murmur - GI/Abdominal GI/Abdominal exam: Present: normal bowel sounds, soft. Absent: distended, hepatomegaly, tenderness - Extremities Exam Extremities exam: Present: normal capillary refill, normal inspection, warm, radial pulses palpable and symmetrical. Absent: calf tenderness, cyanotic, pedal edema, tenderness - Neurological Exam Neurological exam: Present: alert, oriented X3, no focal deficits. Absent: facial droop, speech deficit - Skin Skin exam: Present: dry, intact, normal color, warm. Absent: rash Internal Medicine: Result - Labs CBC & Chem 7: 06/03/17 05:25 06/03/17 05:25 Labs: Short CBC 06/03/17 Range/Units 05:25 WBC 10.9 (4.3-11.1) K/mcL Hgb 11.3 L (12.9-16.9) g/dL Hct 32.8 L (37.5-50.1) % Plt Count 78 L (140-400) K/mcL Neutrophils # 2.8 (1.6-8.9) K/mcL BMP 06/03/17 05:25 Sodium 135 L Potassium 4.6 Chloride 103 Carbon Dioxide 25 BUN 25 H Creatinine 1.62 H Glucose 208 H Calcium 9.3 Cardiac Enzymes 06/03/17 06/03/17 06/03/17 Range/Units 05:25 10:03 16:15 Troponin I 0.80 H* 0.72 H* 0.48 H* (< 0.04) ng/mL Liver Function 06/03/17 Range/Units 05:25 Total Bilirubin 0.8 (0.3-1.0) mg/dL AST 34 (13-39) Units/L ALT 36 (7-52) Units/L Alkaline Phosphatase 65 (34-104) Units/L Albumin 3.6 (3.5-5.7) g/dL - ABG Interpretation ABG results: PT/INR, D-dimer PT 11.2 Seconds (9.4-12.1) 06/02/17 21:05 - VTE Reasons for not Prescribing Prophylaxis: Not indicated-Anticoagulated or INR therapeutic Consult Discharge Plan - Plan [facility]errals: [facility] [Primary Care Provider] - Evgeny Wolff [Family Provider] -
[2017-06-04] MEDS: Insulin LISPRO 300 UNITS/3 ML VIAL SQ SCH ×4 (08:10→20:54)
[2017-06-04] MEDS: Aspirin 81 MG TAB.CHEW PO SCH (08:11)
[2017-06-04 09:36] LABS: Red Cell Distribution Width 13.2 % (11.5-14.5)
[2017-06-04 09:38] LABS: Basophils % 0.4 %; Eosinophils # 0.1 K/mcL (0.0-0.6); Hematocrit 36.5 % (37.5-50.1); Hemoglobin 12.3 g/dL (12.9-16.9); Immature Granulocytes % 0.5 % (0-4); Immature Platelets 2.7 % (1.1-6.1); Lymphocytes # 5.2 K/mcL (0.6-4.6); Lymphocytes % 53.8 %; Mean Corpuscular HGB Conc 33.7 g/dL (31.6-35.5); Mean Corpuscular Hemoglobin 31.6 pg (28.0-33.3); Mean Corpuscular Volume 93.8 fL (83.0-100.0); Mean Platelet Volume 10.8 fL (9.4-12.4); Monocytes # 0.5 K/mcL (0.0-1.3); Monocytes % 5.5 %; Neutrophils # 3.8 K/mcL (1.6-8.9); Nucleated Red Blood Cells 0.3 /100 WBC (0); Red Blood Count 3.89 M/mcL (4.19-5.50); Segmented Neutrophils % 38.8 %
[2017-06-04 09:43] LABS: BUN/Creatinine Ratio 15 (6-26); Blood Urea Nitrogen 17 mg/dL (8-23); Carbon Dioxide 26 mEq/L (23-29); Chloride 110 mEq/L (98-107); Glucose 129 mg/dL (70-105); Osmolality,Calculated 295 (280-300); Potassium 4.6 mEq/L (3.5-5.1); Sodium 141 mEq/L (136-145); eGFR For African Americans > 60 (> 60); eGFR For Non-African Americans > 60 (> 60)
[2017-06-04 09:58] LABS: Platelet Count 94 K/mcL (140-400)
--- NOTE | 2017-06-04 13:17 | Cardiology Progress Note ---
Date of Encounter: 06/04/17 Time of Encounter: 12:15 Assessment and Plan (1) Troponin level elevated Current Visit: Yes Status: Acute Chest pain has resolved, coronary arteries normal, suspect troponin elevation most consistent with demand ischemia, continue careful monitoring, risk factor modification, pt is at low cardiovascular risk for hospital discharge, heparin drip (2) Near syncope Current Visit: Yes Status: Acute symptoms have resolved with rehydration, suspect near syncope due to dehydration. Discussion w patient/family: The assessment and plan as outlined above was discussed with the patient and/or family members who expressed understanding and agreement. All questions were answered. Thank you for involving us in the care of your patient. Please call with any questions. Subjective Interval history: PT reports dizziness has resolved. Chest pain has resolved, He has been up in room without complaints of chest pain, pressure or shortness of breath. Objective Vital Signs, Last 4 Hours Temp Pulse Resp BP Pulse Ox 06/04/17 10:34 97.9 F 90 16 134/65 95 General: Conversant, No Apparent Distress HEENT: Atraumatic, Normocephaly, Mucus Membranes Moist Neck: No JVD Cardiac: Reg Rate and Rhythm, Normal S1 and S2 Lungs: Normal Breath Sounds, No Wheeze, Rales, Rhonchi Neuro: Alert and responsive Abdomen: Soft Skin: No rashes noted on visualized skin Musculoskeletal: No Chest Wall Tenderness Extremities: No Clubbing, No Cyanosis (Cath site warm and dry, no hemotoma, no bleeding. ) Results 06/04/17 09:05 06/04/17 09:05 Lab Results 06/03/17 06/03/17 06/04/17 16:15 18:54 09:05 WBC Hgb Hct Plt Count APTT 40.2 H Sodium 141 Potassium 4.6 Chloride 110 H Carbon Dioxide 26 BUN 17 Creatinine 1.10 Glucose 129 H Calcium 9.0 Troponin I 0.48 H* 06/04/17 09:05 WBC 9.7 Hgb 12.3 L Hct 36.5 L Plt Count 94 L APTT Sodium Potassium Chloride Carbon Dioxide BUN Creatinine Glucose Calcium Troponin I - VTE Reasons for not Prescribing Prophylaxis: Not indicated-Anticoagulated or INR therapeutic Consult Discharge Plan - Plan [facility]errals: [facility] [Primary Care Provider[facility] - Evgeny Wolff [Family Provider] -
--- NOTE | 2017-06-04 18:55 | Internal Med Progress Note ---
Date of Encounter: 06/04/17 Time of Encounter: 09:30 - Assessment and plan (1) LILLIAM (acute kidney injury) Current Visit: Yes Status: Acute Assessment and plan: Renal function has returned to normal limits. Creatinine 1.10, GFR greater than 60. (2) Near syncope Current Visit: Yes Status: Acute Assessment and plan: Patient reported near syncopal episode which prompted admission. [facility] performed 06/03. Coronary arteries were angiographically normal. Cardiology recommends optimal medical therapy and aggressive risk factor modification. Is Continue telemetry Continue monitoring for safety Continue monitor vitals (3) Troponin level elevated Current Visit: Yes Status: Acute Assessment and plan: Suspect troponin elevation due to hypovolemia, hypotension, demand ischemia. Hypovolemia and hypotension have resolved. Patient will be discharged on home medications Continue telemetry Prepared at discharge in the morning. (4) DVT prophylaxis Current Visit: Yes Status: Acute Assessment and plan: Heparin subcutaneous twice daily. - Time Spent With Patient Total time spent is greater than 50% in coordination of care (as documented) at patient's floor/unit and/or counseling patient: less than 15 minutes - Subjective Interval history: Patient was seen and assessed at bedside at 0930 AM. Patient states that he is feeling better, he is drowsy. We will continue to monitor for changes. He denies headache or chest pain, no shortness of breath, nausea, vomiting, abdominal pain. Plan for discharge in the morning. - Constitutional Vitals: Temp Pulse Resp BP Pulse Ox 98.7 F 79 14 120/75 93 06/04/17 14:48 06/04/17 14:48 06/04/17 14:48 06/04/17 14:48 06/04/17 14:48 General appearance: Present: cooperative, A&O X 3, pleasant, no acute distress, answers questions appropriately - Head Head exam: Present: atraumatic, normal inspection, normocephalic - Eye Eye exam: Present: normal appearance, conjuntiva pink, sclera anicteric - Neck Neck exam general surgery: Present: supple, trachea midline. Absent: lymphadenopathy, tenderness - Respiratory Respiratory exam: Present: CTAB. Absent: accessory muscle use, rales, respiratory distress, rhonchi, wheezes - Cardiovascular Cardiovascular exam: Present: RRR, +S1, +S2. Absent: diastolic murmur, gallop, rubs, systolic murmur - GI/Abdominal GI/Abdominal exam: Present: normal bowel sounds, soft. Absent: distended, hepatomegaly, tenderness - Extremities Exam Extremities exam: Present: normal capillary refill, normal inspection, warm, radial pulses palpable and symmetrical. Absent: calf tenderness, cyanotic, pedal edema, tenderness - Neurological Exam Neurological exam: Present: alert, oriented X3, no focal deficits. Absent: facial droop, speech deficit - Skin Skin exam: Present: dry, intact, normal color, warm. Absent: rash Internal Medicine: Result - Labs CBC & Chem 7: 06/04/17 09:05 06/04/17 09:05 Labs: Short CBC 06/04/17 Range/Units 09:05 WBC 9.7 (4.3-11.1) K/mcL Hgb 12.3 L (12.9-16.9) g/dL Hct 36.5 L (37.5-50.1) % Plt Count 94 L (140-400) K/mcL Neutrophils # 3.8 (1.6-8.9) K/mcL BMP 06/04/17 09:05 Sodium 141 Potassium 4.6 Chloride 110 H Carbon Dioxide 26 BUN 17 Creatinine 1.10 Glucose 129 H Calcium 9.0 - ABG Interpretation ABG results: PT/INR, D-dimer PT 11.2 Seconds (9.4-12.1) 06/02/17 21:05 - VTE Reasons for not Prescribing Prophylaxis: Not indicated-Anticoagulated or INR therapeutic Consult Discharge Plan - Plan Referrals: [facility] [Primary Care Provider] - Evgeny Wolff [Family Provider] -
[2017-06-04] MEDS ORDERED: Artificial Tears SOLN 15 ML BOTTLE BOTH EYES PRN (19:49)
[2017-06-04] MEDS: Acetaminophen 325 MG TABLET PO PRN (20:04)
[2017-06-05] MEDS: Insulin LISPRO 300 UNITS/3 ML VIAL SQ SCH (08:48)
[2017-06-05] MEDS: Aspirin 81 MG TAB.CHEW PO SCH (08:48)
--- NOTE | 2017-06-05 10:32 | Discharge Summary ---
Date of Encounter: 06/05/17 Time of Encounter: 09:40 - Discharge Diagnosis (1) Near syncope Priority: Primary Status: Acute Comments: Pt denies dizziness or other symptoms. Resolved. Follow with PCP and resume home medications. (2) LILLIAM (acute kidney injury) Priority: Secondary Status: Acute Comments: Resolved. 1.10/> 60. (3) Troponin level elevated Priority: Secondary Status: Acute Comments: Likely due to hypovolemia, hypotension, demand ischemia. Hypovolemia and hypotension have resolved. Continue home medications. (4) DVT prophylaxis Priority: Secondary Status: Acute Comments: Heparin subcutaneous twice daily. Hospital course: Mr. Baum is a 67 year old male who presented from the [place] to the ER for elevated troponin and near syncopal episode. Patient presented to the [place] earlier in the evening for an emergency refill of his diabetic medications. He said that he felt lightheaded and dizzy and had near syncopal episode. At that time he thinks his glucose was low, he was found to be hypotensive and was evaluated by the urgent care staff at the [place]. At that time use of found also to have positive troponins and was sent to our emergency department for evaluation and admission. Upon admission here he also had an elevated troponin of 0.36 and hypotension. Also noted was elevated serum creatinine and acute kidney injury. Patient responded well to IV fluids and stated that he felt better afterwards. Echocardiogram showed an LVEF of 60-65%, mild LV DD, no significant valvular dysfunction. Carotid Dopplers showed right sided nonstenotic plaque and left- sided mid ICA with 60-79% stenosis that may be related to a tortuous vessel. Patient reported mild chest pain, it was reproducible, ache, rated at 3/10 at the time, also reports possible radiation into his right arm. Patient is exceptionally poor historian. EKG normal sinus with no ischemic changes He was evaluated by cardiology and plan for C later in the day. C report showed the coronary arteries were angiographically normal. Cardiology is recommended optimal medical therapy and aggressive risk factor modification. Patient will continue his home medications including aspirin and statin on discharge. Patient denies chest pain and states that he is feeling much better. Elevated troponin most likely due to demand ischemia from hypotension and hypovolemia. AK I due to hypovolemia and poor oral intake. Patient's physical exam remained unremarkable. His labs and vitals are stable and within normal limits. He is appropriate for discharge. He will need to follow up with primary care in the next 7-10 days for a reevaluation. Discharge discussed with: patient - Time Spent with Patient Total time spent providing and/or coordinating discharge services: Less than 30 minutes - Discharge Medications Home Medications: Gabapentin [Neurontin] 300 mg PO TID 02/09/17 [History] Levothyroxine [Synthroid] 50 mcg PO 0630 02/09/17 [History] Multivit-Min/Folic/Vit K/Lycop [Hm Mens 50 Plus Adv One Daily] 1 tab PO DAILY [History] Cholecalciferol (D-3) [Vitamin D] 3,000 unit PO DAILY 03/04/17 [History] Cyclobenzaprine [Flexeril] 10 mg PO TID PRN 03/04/17 [History] Lisinopril [Zestril] 5 mg PO DAILY 03/04/17 [History] Meloxicam 15 mg PO DAILY 03/04/17 [History] Atorvastatin [Lipitor] 40 mg PO HS 03/11/17 [History] Calcium Carbonate/Vitamin D3 [Calcium 600-Vit D3 200 Tablet] 1 each PO DAILY [History] Carboxymethylcellulose Sodium [Refresh Liquigel] 1 drop BOTH EYES QID PRN [History] FLUoxetine HCl [Prozac] 20 mg PO DAILY 03/11/17 [History] Glucosamine Sulfate Dipot Chlr [Glucosamine] 1,000 mg PO DAILY 03/11/17 [History ] Metformin HCl [Glucophage] 1,000 mg PO BID 03/11/17 [History] MetroNIDAZOLE [Rosadan] 1 appl TP BID 03/11/17 [History] glipiZIDE [Glucotrol] 2.5 mg PO BIDWM 03/11/17 [History] risperiDONE [Risperdal] 2 mg PO HS 03/11/17 [History] Allergies/Adverse Reactions: 3 Allergy/AdvReac Type Severity Reaction Status Date / Time levofloxacin [From Levaquin] Allergy Rash Verified 03/11/17 16:49 Sulfa (Sulfonamide Allergy See Verified 03/11/17 16:49 Antibiotics) Comments sulfamethoxazole Allergy See Verified 03/11/17 16:49 [From Bactrim] Comments trimethoprim [From Bactrim] Allergy See Verified 03/11/17 16:49 Comments Date of admission: 06/03/17 04:52 Primary care physician: [facility] Discharg[facility] clinician: Chantel Mak Anticipated date of discharge: 06/05/17 - Constitutional Vitals: Temp Pulse Resp BP Pulse Ox 97.8 F 86 14 145/78 94 06/05/17 06:47 06/05/17 06:47 06/05/17 06:47 06/05/17 06:47 06/05/17 06:47 General appearance: Present: cooperative, A&O X 3, pleasant, no acute distress, answers questions appropriately - Head Head exam: Present: atraumatic, normal inspection, normocephalic - Eye Eye exam: Present: normal appearance, conjuntiva pink, sclera anicteric - Neck Neck exam general surgery: Present: supple, trachea midline. Absent: lymphadenopathy, tenderness - Respiratory Respiratory exam: Present: CTAB. Absent: accessory muscle use, decreased breath sounds, rales, respiratory distress, rhonchi, wheezes - Cardiovascular Cardiovascular exam: Present: RRR, +S1, +S2. Absent: diastolic murmur, gallop, rubs, systolic murmur - GI/Abdominal GI/Abdominal exam: Present: normal bowel sounds, soft. Absent: distended, hepatomegaly, tenderness - Extremities Exam Extremities exam: Present: normal capillary refill, normal inspection, warm, radial pulses palpable and symmetrical. Absent: calf tenderness, cyanotic, pedal edema, tenderness - Neurological Exam Neurological exam: Present: alert, oriented X3, no focal deficits. Absent: facial droop, speech deficit - Skin Skin exam: Present: dry, intact, normal color, warm. Absent: rash - Patient Status Disposition: Home, Self-Care Condition: Good Functional capacity at discharge: independent ambulation Overall status at discharge: patient is back to baseline - Discharge Instructions Follow Up With: [facility] [Primary Care Provider[facility] - Evgeny Wolff [Family Provider] - Additional Instructions: Follow-up with your primary care provider in the next 7-10 days for recheck. Recommend medication check with primary care to evaluate continued need for sedating medications such as Neurontin or Flexeril. Return to the emergency department as needed for any other problems or concerns , or if your symptoms return or worsen. Return to your normal diet and activities as tolerated. Resume your other home medications. Make sure that you are adequately hydrated every day to avoid future incidents of similar nature. - Diet and Activity Activity: increase activity as tolerated Diet: advance to your usual diet - VTE Reasons for not Prescribing Prophylaxis: Not indicated-Anticoagulated or INR therapeutic
[2017-06-05 11:07] VITALS: BP 119/71
--- NOTE | 2017-06-10 08:25 | Electrocardiograph Report ---
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
== END 2017-06-05 12:21 | disposition home or self-care (01) | DRG 683 ==
LOC: 3BNU 20:45 → EMEROO 20:45 → 3BNU 06-03 00:52
PROVIDERS: ADMIT Pediatrics; ATTEND Registered Nurse